=== PATIENT | female | born 1970 | race Caucasian/White ===

== ENCOUNTER → 2017-04-28 | Outpatient (CLI) | payer BC ==
[~2017-04-28] MED LIST: LEVO50TA6 PO; OXYC-57 PO
[2017-04-28 17:04] LABS: BASO % 0.5 %; BASO ABS # 0.05 K/uL (0-0.2); COMPLETE YES; EOS % 1.8 %; HEMATOCRIT 37.1 % (37-47); IG% 0.3 %; LYMPH % 21.5 %; MEAN CELL VOLUME 89.2 fL (80-100); MEAN CORPUSCULAR HEMOGLOBIN 29.1 pg (25-34); MEAN CORPUSCULAR HGB CONC 32.6 g/dl (32-36); MEAN PLATELET VOLUME 10.2 fL (7.4-10.4); MONO % 5.1 %; NEUT % 70.8 %; PLATELET COUNT 519 K/uL (130-400); RED BLOOD COUNT 4.16 M/uL (4.2-5.4); WHITE BLOOD COUNT 10.24 K/uL (4.8-10.8)
== END | disposition home or self-care (01) ==
LOC: C.LABBC 14:23
PROVIDERS: ATTEND Orthopaedic Surgery Orthopaedic Surgery of the Spine
DX: Z01.818 Encounter for other preprocedural examination (principal)

== ENCOUNTER 2017-05-25 05:41 | Inpatient (IN) | payer BC ==
[2017-04-29 14:29] VITALS: BMI 39.0
--- NOTE | 2017-05-22 15:57 | HISTORY & PHYSICAL EXAMINATION ---
DATE OF ADMISSION: 05/25/2017 CHIEF COMPLAINT: Back pain, lower extremity difficulty, paresthesias, numbness and tingling. She is being preoped for a posterior lumbar interbody fusion L5-S1. She has had back and lower extremity difficulties as described, paresthesias, numbness and tingling, inability to stand. PAST MEDICAL HISTORY: Obesity, high cholesterol, abnormal EKG 20 years ago, hypothyroid. PAST SURGICAL HISTORY: Knee surgery, chondroplasty, rotator cuff repair, left foot open reduction internal fixation, reduction mammoplasty. SOCIAL HISTORY: Minimal smoker, stopped 10 years ago. No alcohol use. REVIEW OF SYSTEMS: Denies any blurred vision, double vision, tinnitus, vertigo. Denies chest pain, palpitations. Denies shortness of breath, nausea, vomiting, urgency, frequency, dysuria. She has back pain, lower extremity difficulty, paresthesias. OBJECTIVE: GENERAL: She is 5'5, 235, 46 years of age, appropriate, asked intelligent questions, mentally fit. HEAD, EYES, EARS, NOSE, AND THROAT: Normal. VITAL SIGNS: Blood pressure 135/80, pulse of 80, respiration rate 16. CARDIAC: Normal S1, S2, no S3. LUNGS: Clear to auscultation. No rales, rhonchi or wheezing. ABDOMEN: Soft, nontender, bowel sounds present. NEUROLOGIC: Demonstrates numbness and tingling to the lower extremities, mostly in the L5 and S1 distribution. She has pain with flexion, extension of the spine. Pain with percussion. Images demonstrate a grade 1 spondylolisthesis, possibly grade 2 with degenerative changes. ASSESSMENT: Spondylolisthesis of the spine. DISPOSITION: Includes a posterior lumbar interbody fusion at L5-S1 [facility] on 05/25/2017.
[~2017-05-25] VITALS: Ht 162.6 cm; Wt 106.8 kg
[2017-05-25] VITALS (8 sets, daily range): BP systolic 115–147; BP diastolic 72–96; PULSE 72–86; TEMP 36.4–36.9; O2SAT 91–100; Ht 162.6 cm; Wt 106.8 kg
[~2017-05-25 05:41] MED LIST changes: -OXYC-57 PO
[2017-05-25] MEDS ORDERED: LACTATED RINGER'S 1000ML 1,000 ML IV SCH (06:00)
[2017-05-25] MEDS ORDERED: NSS 1000ML IV SCH (06:00)
[2017-05-25] MEDS ORDERED: CEFAZOLIN 2000 MG/60 ML D5W 60 ML IV SCH (06:00)
[2017-05-25] MEDS ORDERED: LIDOCAINE HCL 2% 2 ML VIAL (20MG/ML) ONE (06:43)
[2017-05-25] MEDS ORDERED: PROPOFOL IV EMULSION 10 MG/ML 20 ML VIAL IV ONE (06:43)
[2017-05-25] MEDS ORDERED: MIDAZOLAM HCL 1 MG/ML 2ML VIAL ONE (06:43)
[2017-05-25] MEDS ORDERED: HYDROmorphone INJ 2 MG/ML SYR/VIAL ONE (06:43)
[2017-05-25] MEDS ORDERED: DEXAMETHASONE SOD INJ 4 MG/ML VIAL ONE (06:43)
[2017-05-25] MEDS ORDERED: FENTANYL CITRATE INJ 50 MCG/1 ML 2 ML VIAL ONE ×2 (06:43→09:02)
[2017-05-25] MEDS ORDERED: ONDANSETRON INJ 2 MG/ML 2 ML VIAL ONE ×2 (06:45→08:43)
[2017-05-25] MEDS ORDERED: GELATIN SPONGE SZ 100 ONE ×2 (07:02→08:35)
[2017-05-25] MEDS ORDERED: THROMBIN FOR SOLN 20000 UNIT KIT ONE (07:02)
[2017-05-25] MEDS ORDERED: VANCOMYCIN HCL 1000MG/20ML VIAL ONE (07:02)
[2017-05-25] MEDS ORDERED: BACITRACIN 50000 UNIT VIAL ONE (07:03)
[2017-05-25] MEDS ORDERED: BUPIVACAINE/EPINEPHRINE 0.5% MPF 1:200,000 30 ML VIAL ONE (07:03)
[2017-05-25] MEDS ORDERED: ATROPINE SULFATE 0.1 MG/ML 5ML SYR IV PRN (07:15)
[2017-05-25] MEDS ORDERED: SCOPOLAMINE 1.5 MG TDSY TD SCH (07:15)
[2017-05-25] MEDS ORDERED: HYDROmorphone INJ 1 MG/ML SYR IV PRN (07:15)
[2017-05-25] MEDS ORDERED: ONDANSETRON INJ 2 MG/ML 2 ML VIAL IV PRN ×2 (07:15→10:30)
[2017-05-25] MEDS ORDERED: EpHEDrine SULFATE INJ 50 MG/ML AMP IV PRN (07:15)
[2017-05-25] MEDS ORDERED: FENTANYL CITRATE INJ 50 MCG/1 ML 2 ML VIAL IV PRN (07:15)
[2017-05-25] MEDS ORDERED: PROMETHAZINE HCL INJ 12.5 MG in SODIUM CHLORIDE 0.9% 50ML 50 ML IV PRN ×2 (07:15→10:30)
--- NOTE | 2017-05-25 07:16 | History & Physical Bridge Note ---
H&P Re-Evaluation Bridge Note: I have examined the patient, reviewed the History & Physical and in the interval since the performance of the History & Physical I have noted the following changes of clinical significance: No changes noted
[2017-05-25] MEDS ORDERED: KETAMINE HCL INJ 50 MG/ML 10 ML VIAL ONE (07:55)
[2017-05-25] MEDS ORDERED: ROCURONIUM BROMIDE 10 MG/ML 5 ML VIAL IV ONE ×2 (08:07→09:00)
[2017-05-25] MEDS ORDERED: NEOSTIGMINE METHYLSULFATE 5 MG/5 ML SYR ONE (08:43)
[2017-05-25] MEDS ORDERED: GLYCOPYRROLATE INJ 0.2 MG/ML VIAL ONE (08:43)
[2017-05-25] MEDS ORDERED: SODIUM CHLORIDE 0.9% 1000ML 1,000 ML IV SCH (10:28)
--- NOTE | 2017-05-25 10:28 | DIAGNOSTIC IMAGING REPORT ---
INTRAOPERATIVE RADIOGRAPH CLINICAL HISTORY: L5-S1 spinal fusion. Fluoroscopy time: 16 seconds. FINDINGS: A single spot fluoroscopic view of the lumbar spine is presented. There is evidence of discectomy at L5-S1 with laminectomy and posterior fusion at this level. Interpedicular screws are present at both levels. The orthopedic hardware appears intact. IMPRESSION: Intraoperative image from L5 -S1 spinal fusion as above. Electronically signed by: Vamsi Morris M.D. 05/25/2017 10:26 AM Dictated Date/Time: 05/25/2017 10:25 AM
[2017-05-25] MEDS ORDERED: LORAZEPAM 1 MG TAB PO PRN (10:30)
[2017-05-25] MEDS ORDERED: NALOXONE HCL 0.4 MG/1 ML VIAL/CARP IV PRN (10:30)
[2017-05-25] MEDS ORDERED: ACETAMINOPHEN 325 MG TAB PO PRN (10:30)
[2017-05-25] MEDS ORDERED: METOCLOPRAMIDE HCL INJ 5 MG/ML 2 ML VIAL IV PRN (10:30)
[2017-05-25] MEDS ORDERED: LORAZEPAM INJ 1 MG in SYRINGE 0.5 ML IV PRN (10:30)
--- NOTE | 2017-05-25 10:32 | [facility] Post Operative Brief Note ---
Immediate Operative Summary Operative Date May 25, 2017. Pre-Operative Diagnosis Spondylolisthesis Post-Operative Diagnosis Spondylolisthesis Procedure(s) Performed L5-S1 Posterior Lumbar Interbody Fusion Surgeon Dr. Bedoya Rn Diabetes Educator Surgeon(s) Geovany Izquierdo PA-C Estimated Blood Loss 200ml Findings spondy. l5-s1 Specimens none per surgeon Complication(s) None Disposition Recovery Room / PACU
--- NOTE | 2017-05-25 11:14 | Anesthesiology Progress Note ---
Anesthesia Post Op Note Date & Time May 25, 2017 at 11:14 Vital Signs Pain Intensity: 2 Vital Signs Past 12 Hours Date Time Temp Pulse Resp B/P (MAP) Pulse Ox O2 Delivery O2 Flow Rate FiO2 05/25/17 11:10 36.2 92 15 138/90 97 Nasal Cannula 4 05/25/17 11:00 94 11 156/87 97 Nasal Cannula 4 05/25/17 10:50 95 12 179/92 97 Oxymask 10 05/25/17 10:40 98 14 171/92 99 Oxymask 10 05/25/17 10:30 36.4 105 15 167/98 98 Oxymask 10 05/25/17 06:03 36.9 85 16 142/96 (111) 96 Room Air Notes Mental Status: alert / awake / arousable, participated in evaluation Pt Amnestic to Procedure: Yes Nausea / Vomiting: adequately controlled Pain: adequately controlled Airway Patency, RR, SpO2: stable & adequate BP & HR: stable & adequate Hydration State: stable & adequate Anesthetic Complications: no major complications apparent
[2017-05-25] MEDS ORDERED: HYDROmorphone HCL 0.5MG/ML 50 ML CASSETTE ONE (11:18)
--- NOTE | 2017-05-25 11:41 | OPERATIVE REPORT ---
DATE OF OPERATION: 05/25/2017 PREOPERATIVE DIAGNOSIS: Spondylolisthesis L5-S1. POSTOPERATIVE DIAGNOSIS: Same. PROCEDURE: PLIF procedure L5-S1. SURGEON: Dr. Gonzalez Bedoya. AUTOCUTTER: Geovany Izquierdo PA-C. COMPLICATIONS: Zero. BLOOD LOSS: 200 mL approximate. DESCRIPTION OF PROCEDURE: The patient was taken to the operating room, a general intubated anesthetic provided to the patient, placed prone on the Rafal table. Scrubbed, prepped and draped sterile. Prior to this, we put in a Holbrook catheter. Formal timeout was obtained. Antibiotics administered. We made a skin incision from 4 to the sacrum, dissecting the soft tissue in the same plane. She is an obese individual, we had to use 3-inch blades to get to the spinus process, the overall depth was approximately 4-5 inches to get to the interbody area. We dissected free and lateral out over the sacral ala, the spinous process and the transverse processes of 5 and sacrum bilaterally. We also dissected out over the 4 transverse process. I debated whether to put in a pedicle screw at the 4 level to give her extra support and we negated that decision. We then carefully dissected the neural tissues, particularly S1-L5 on the right, S1-L5 on the left, I was free with the decompression. We safely got pedicle screws into the sacrum, safely got pedicle screws into the 5th vertebrae. We locked down the construct, reduction was satisfactory. We then retracted the dura over in a medial direction. On the left hand side, did a complete discectomy at L5-S1, putting interbody cage at L5-S1, it measured 26 mm in length, 11 mm in height and 10 mm across. I was pleased with the overall fit and fixation and placement. Once again, we irrigated and we tightened down the construct. We packed bone over the transverse process from 4 to the sacrum bilaterally. We used combination autograft and DBM mixed with vancomycin powder. We then closed fascia to fascia with 1 Vicryl suture, vancomycin in the subcuticular layer, 2-0 Vicryl suture then used on the subcuticular layer, 3-0 nylon on the skin. Sterile dressings applied. The patient returned supine, extubated to PACU stable. No apparent intraoperative complications. Sponge and needle count correct at the close. Estimated blood loss 200 mL. I attest to the content of the Intraoperative Record and any orders documented therein. Any exception s are noted below.
[2017-05-25 12:54] LABS: HEMATOCRIT 32.7 % (37-47)
[2017-05-25] MEDS ORDERED: INFLUENZA VIRUS QUAD VACCINE 0.5 ML SYR IM. ONE (13:15)
[2017-05-25] MEDS ORDERED: INFLUENZA ADMINISTRATION CHARGE ONE (13:15)
[2017-05-25] MEDS: SODIUM CHLORIDE 0.9% 1000ML 1,000 ML IV SCH ×2 (13:40→22:25)
[2017-05-25] MEDS: KETOROLAC TROMETHAMINE 30 MG/ML VIAL IV SCH ×3 (13:41→23:32)
[2017-05-25] MEDS: CEFAZOLIN IV 2,000 MG in DEXTROSE 5% 50ML 50 ML IV SCH ×2 (14:45→22:25)
[2017-05-25] MEDS: DEXAMETHASONE INJ 10 MG in SYRINGE 0 ML IV SCH ×2 (14:45→22:24)
[2017-05-25] MEDS: CHECK SCOPOLAMINE PATCH PLACEMENT SCH ×3 (16:00→23:33)
[2017-05-25] MEDS: HYDROmorphone HCL 0.5MG/ML 50 ML CASSETTE IV PRN (18:54)
[2017-05-26 02:53] VITALS: BP 121/75; PULSE 79; TEMP 36.7; O2SAT 90
[2017-05-26] MEDS ORDERED: NURSING VERBAL MED ORDER ONE (05:45)
[2017-05-26] MEDS: LEVOTHYROXINE 50 MCG TAB PO SCH (05:58)
[2017-05-26] MEDS: DEXAMETHASONE INJ 10 MG in SYRINGE 0 ML IV SCH ×3 (05:58→21:21)
[2017-05-26] MEDS: KETOROLAC TROMETHAMINE 30 MG/ML VIAL IV SCH ×2 (05:58→13:08)
[2017-05-26] MEDS: CEFAZOLIN IV 2,000 MG in DEXTROSE 5% 50ML 50 ML IV SCH (06:06)
[2017-05-26] MEDS: HYDROmorphone HCL 0.5MG/ML 50 ML CASSETTE IV PRN (07:00)
[2017-05-26 07:10] VITALS: BP 132/82; PULSE 74; TEMP 36.7; O2SAT 94
[2017-05-26] MEDS ORDERED: DC PCA PRN (08:00)
[2017-05-26] MEDS ORDERED: HYDROmorphone INJ 2 MG/ML SYR/VIAL IV PRN (08:00)
[2017-05-26] MEDS: CHECK SCOPOLAMINE PATCH PLACEMENT SCH ×3 (08:00→23:13)
[2017-05-26] MEDS ORDERED: HYDROmorphone INJ 1 MG/ML SYR IV PRN (08:00)
[2017-05-26] MEDS: POLYETHYLENE (MIRALAX) 17 GM PACK PO SCH (08:38)
--- NOTE | 2017-05-26 09:11 | PROGRESS NOTE ---
DATE: 05/25/2017 DATE: 05/26/2017 SUBJECTIVE: She was improved, stable. Minimal complaints of pain, incisional back pain. Minimal lower extremity difficulty. OBJECTIVE: Vital signs stable, 36.7 temperature. Moves all extremities. ASSESSMENT: Status post single level posterior lumbar interbody fusion procedure lumbar spine L5-S1. DISPOSITION: Will have her up and ambulatory this morning. Tentative discharge home tomorrow. Drain and dressing will be changed tomorrow as well.
[2017-05-26] MEDS: OXYCODONE/ACETAMINOPHEN 5-325 TAB PO PRN ×2 (10:13→20:09)
[2017-05-26 11:27] VITALS: BP 155/95; PULSE 85; TEMP 36.6; O2SAT 95
[2017-05-26 15:30] VITALS: BP 128/79; PULSE 83; TEMP 36.9; O2SAT 95
[2017-05-26 22:49] VITALS: BP 130/82; PULSE 69; TEMP 36.8; O2SAT 95
[2017-05-27] MEDS: OXYCODONE/ACETAMINOPHEN 5-325 TAB PO PRN ×3 (04:30→12:58)
[2017-05-27] MEDS: LEVOTHYROXINE 50 MCG TAB PO SCH (05:36)
[2017-05-27 06:00] VITALS: BP 117/77; PULSE 75; TEMP 36.9; O2SAT 96
[2017-05-27] MEDS ORDERED: OXYC-57 PO (07:25)
--- NOTE | 2017-05-27 07:26 | Discharge Instructions ---
Discharge Instructions Date of Service May 27, 2017. Admission Reason for Admission: Spondylolisthesis, Spondylosis Discharge Discharge Diagnosis / Problem: SAME ABOVE Discharge Goals Goal(s): Decrease discomfort, Improve function Activity Recommendations Activity Limitations: as noted below Lifting Limitations: until after follow-up appointment Exercise/Sports Limitations: until after follow-up appointment Shower/Bathe: no limitations . Instructions / Follow-Up Instructions / Follow-Up MEDICATIONS: Please take your prescriptions as instructed at your pre-op appointment. SPECIAL CARE: The following information is intended to answer some of the common questions and concerns regarding your surgery. Each patient is an individual and receives individual counselling throughout the course of treatment, from diagnosis to surgery all the way through recovery. What follows is not an exhaustive list, but should be a useful guide to some of the common questions and concerns patients have regarding their surgeries. These are not provided to keep you from calling us; rather, they give you something accurate and concrete to reference as you recover from your procedure. If you need us, we are available to you. As always, if you are not sure about something, call us at [phone]. MEDICAL EMERGENCIES: For these conditions, call 911 or go to your local hospital-based Emergency Department - not [facility] or equivalent. * Paralysis * Severe chest pain or difficulty breathing * Swelling or redness of either leg Spine procedures can be rather complex and though complications are rare, they do occur. In such cases, effective advice regarding emergency situations cannot always be addressed over the telephone. You may be referred to the emergency department for more effective management of your problem. Activity Limitations: It is important to give your body time to heal, so please limit your activities : * In general, don't do anything that moves your spine too much. You should avoid contact sports, twisting or heavy lifting while you recover. * 5-10 pounds is all you should attempt to lift. * You should not plan on driving for approximately 3 weeks and you should avoid traveling more than 30-45 minutes at a time. Longer trips should be broken down with walking breaks spaced appropriately. * Physical therapy is not usually required. * Walking and good posture practices will help you recover and regain your function. * Avoid straining or sudden changes in position. * In general, the goal is to take it easy and recover. Don't cause any new problems. Just relax. Showers: * Do not take a bath, use a Jacuzzi or hot tub or otherwise submerge your incision. * It is usually safe to take a shower 4-5 days after your surgery. * Your incision does not require any special creams or ointments. * Simply clean it with soap and water, dry and re-dress with a clean bandage afterwards. Incision: * Keep incision clean, dry and protected until your first follow-up appointment. * Some amount of drainage and redness is normal. Any drainage should be fairly clear and not have a foul odor. * If you feel anything is wrong or you have excessive drainage, please call us. * Your stitches and cristina will be removed 10-14 days after your surgery. At the time of your first post-op visit. * Neck surgeries are typically closed with a suture underneath the skin. The steri-strips over the incision should be maintained until we see you in the office. Bracing: * You may be provided with a back or neck brace to encourage good posture and prevent injury. It will remind you not to do too much as you heal and will alert others to the fact that you have had a surgery. * Back braces may be removed for showers and when you are resting at home. They must be worn when you are walking around for any period of time or for travel. * For neck surgery, you will likely be provided with two cervical collars. The soft collar ([place] or foam rubber) is worn most commonly throughout the day and while sleeping. The plastic collar (provided at the hospital) is for showering/bathing. * Except while eating, collars should remain in place. More specifically, bracing is provided for a purpose and should be worn. * Please obtain your brace or collars prior to your operation and bring them to the hospital with you on the day of surgery. * You should also bring your collars to your post-op appointment with Dr. Bedoya. You should always take good care of your body and practice healthy habits, especially following surgery. You should: * Follow your doctor's treatment plan * Sit and stand properly with good posture (ears over shoulders, shoulders over hips) Don't slouch * Learn to lift correctly * Exercise regularly (low-impact aerobic exercise is especially good, but check with your doctor first) * Generally, be up and walking for 5-10 minutes at a time at least 3-4 times per day from the day you get home * Increasing walking to tolerance until you can walk for 20-30 minutes at a time * Attain and maintain a healthy body weight * Eat healthy foods ( a well-balanced, low-fat diet rich in fruits and vegetables) and get enough calcium * Avoid excessive use of alcohol When to call our office - If you notice any of the following: * Increased pain not relieve by pain medicine * Fevers greater then 100 degrees F, chills or flu symptoms * Increased redness around incision * Drainage from the incision that is not clear * Any foul smelling drainage * Swelling or fluid collection beneath the skin Miscellaneous: * In the hospital, you may be given a walker or cane for support while walking. These are temporary needs and are intended to prevent injuries due to falls. You may discontinue them when you feel strong and steady enough on your feet. * Sleep in a comfortable position. We find that many patients find a lounge chair or recliner with several pillows to be beneficial in the early post-operative period. * The support stockings should be used for 7-10 days and may be discontinued when you are back to walking more and conducting usual household activities. No problem is insignificant. We are here to help you and get you well. Contact us at [phone]. Definitions: Foraminotomy: If part of the disc or a bone spur (osteophyte) is pressing on a nerve as it leaves the vertebra (through an exit called the foramen), a foraminotomy may be done. Otomy means "to make an opening." A foraminotomy is making the opening of the foramen larger, so the nerve can exit without being compressed. Laminotomy: Similar to the foraminotomy, a laminotomy makes a larger opening, this time in your bony plate protecting your spinal canal and spinal cord (the lamina). The lamina may be pressing on your nerve, so the surgeon may make more room for the nerves using a laminotomy. Laminectomy: Sometimes, a laminotomy is not sufficient. The surgeon may need to remove all or part of the lamina. This procedure is called a laminectomy. This can often be done at many levels without any harmful effects. Current Hospital Diet Patient's current hospital diet: Regular Diet Discharge Diet Recommended Diet: Regular Diet Procedures Procedures Performed: L5-S1 Posterior Lumbar Interbody Fusion Pending Studies Studies pending at discharge: no Medical Emergencies . Who to Call and When: Medical Emergencies: If at any time you feel your situation is an emergency, please call 911 immediately. . Non-Emergent Contact Non-Emergency issues call your: Primary Care Provider . "Provider Documentation" section prepared by Geovany Izquierdo. . VTE Core Measure Inpt VTE Proph given/why not?: Treatment not indicated
[2017-05-27] MEDS: BISACODYL 5 MG TABEC PO PRN (07:29)
[2017-05-27] MEDS ORDERED: NURSING VERBAL MED ORDER ONE ×2 (08:30→13:30)
[2017-05-27] MEDS: POLYETHYLENE (MIRALAX) 17 GM PACK PO SCH (09:07)
[2017-05-27] MEDS ORDERED: CYCLOBENZAPRINE HCL 10 MG TAB PO ONE (14:30)
[2017-05-27] MEDS ORDERED: KETOROLAC TROMETHAMINE 30 MG/ML VIAL IV. ONE (14:30)
[2017-05-27 14:45] VITALS: BP 117/77; PULSE 75; TEMP 36.9; O2SAT 96
[2017-05-27 15:34] VITALS: BP 130/83; PULSE 71; TEMP 36.8; O2SAT 96
[2017-05-27] MEDS: BISACODYL 10 MG SUPP PR PRN (16:37)
[2017-05-27] MEDS ORDERED: HYDROmorphone INJ 2 MG/ML SYR/VIAL IV PRN (17:15)
--- NOTE | 2017-05-27 17:35 | ORTHOPEDIC PROGRESS NOTE ---
DATE: 05/27/2017 SUBJECTIVE CHIEF COMPLAINT: Postop day #2 lumbar fusion L5-S1. Ladi is a 46-year-old female postop day #2 lumbar spinal fusion at L5-S1. HISTORY OF PRESENT ILLNESS: She initially did well yesterday without any significant pain complaints. This morning, she had a little bit of pain radiating down her left leg with ambulation. There was 1 episode by mid afternoon when she stood up and had a sharp, burning electrical type pain running down from her left buttock into her left foot. This concerned her a little bit. We had scheduled her for discharge today; however, we are going to hold her until tomorrow with further medical management. OBJECTIVE: She was standing at bedside during her evaluation. She did not look in any apparent distress. She was wearing her back brace for support. I had her sit at bedside. She did have pain with straight leg raises on the left side versus the right. She has appropriate patellar and Achilles reflexes bilaterally. No true weakness in her lower extremities. No bowel or bladder incontinence. DATA: No new x-rays taken postoperatively. However, she had a CT scan pending of her lumbar spine to be done tomorrow. ASSESSMENT AND DIAGNOSES: Postop day #2 lumbar spinal fusion L5-S1. PLAN: At this time, we are going to keep her 1 more day, inpatient. We will get her started on some ketorolac q. 6 hours. Also get her some pain medication including Percocet orally and Dilaudid for new breakthrough pain. Also, provide her with some Flexeril for any backbiter if she may have. At this point, we will keep her at bed rest with bathroom privileges. If she is having significant pain, we can straight catheter her at bedside. I did order a CT scan for her to be scheduled for tomorrow. We will follow her up tomorrow to see how she is doing. Anticipated discharge day would be tomorrow, which is the 28 of May. I discussed this all with the patient and she is in agreement. I discussed with Dr. Bedoya as well and we are in agreement as well. PAULETTE
[2017-05-27] MEDS: MAGNESIUM HYDROXIDE SUSP 30 ML UDC PO PRN (22:20)
[2017-05-27] MEDS: KETOROLAC TROMETHAMINE 30 MG/ML VIAL IV PRN (22:22)
[2017-05-27 23:18] VITALS: BP 123/78; PULSE 89; TEMP 37; O2SAT 97
[2017-05-28] MEDS: CYCLOBENZAPRINE HCL 10 MG TAB PO PRN ×3 (00:53→20:22)
[2017-05-28] MEDS: OXYCODONE/ACETAMINOPHEN 5-325 TAB PO PRN (04:10)
[2017-05-28] MEDS: LEVOTHYROXINE 50 MCG TAB PO SCH (05:14)
[2017-05-28 06:57] VITALS: BP 150/92; PULSE 75; TEMP 36.7; O2SAT 96
--- NOTE | 2017-05-28 08:44 | DIAGNOSTIC IMAGING REPORT ---
LUMBAR SPINE CT CT DOSE: 1364.21 mGy.cm HISTORY: new onset left side low back pain s/p lumbar fusion TECHNIQUE: Multiaxial CT images of the lumbar spine were performed and reformatted in the sagittal and coronal plane without the use of contrast. A dose lowering technique was utilized adhering to the principles of ALARA. COMPARISON: Outside hospital lumbar spine MRI 03/13/2017. FINDINGS: There is evidence for removal of the left L4 pedicle screw. There is a small amount of gas and multiple bony fragments posterior to the left L4 transverse process consistent with the recent postoperative change. Healed fracture at the left L4 transverse process. There is an acute nondisplaced fracture at the tip of the L4 spinous process. This is best seen on sagittal image 32. Vertebral body heights are maintained. There is posterior decompression and fusion at L5-S1 with pedicle screws and rods. The hardware appears intact. There is also a disc spacer at this level. Remaining disc spaces are preserved. Evaluation of the central canal is limited due to CT technique. No definite central canal narrowing or neural foraminal narrowing from L1 through L5. Trace epidural gas at the L3-L4 and L4-5 levels likely due to the recent postoperative change. There is a small of gas at the recent L5-S1 laminectomy site. There are multiple small bony fragments medial to the left L5 pedicle/pedicle screw which reside along the left side of the central canal. The dominant 6 mm bony fragment best seen on axial image 310 and sagittal image 36 likely abuts the transiting left L5 nerve root. There is severe left-sided neural foraminal narrowing at L5-S1. Mild right-sided neural foraminal narrowing L5-S1. Evidence for bilateral L5 spondylolysis. This results in grade I anterolisthesis, unchanged. IMPRESSION: 1. Acute nondisplaced fracture at the tip of the L4 spinous process. 2. Interval removal of the left L4 pedicle screw with interval L5-S1 posterior decompression and fusion with pedicle screws and rods. The hardware appears intact. 3. There are multiple small bony fragments medial to the left L5 pedicle/pedicle screw. The dominant 6 mm bony fragment is along the left side of the thecal sac and likely abuts the transiting left L5 nerve root. 4. Additional findings as described above Electronically signed by: Michael Talavera M.D. 05/28/2017 8:43 AM Dictated Date/Time: 05/28/2017 8:29 AM
[2017-05-28] MEDS: KETOROLAC TROMETHAMINE 30 MG/ML VIAL IV PRN ×3 (08:45→21:30)
[2017-05-28] MEDS: POLYETHYLENE (MIRALAX) 17 GM PACK PO SCH (08:46)
--- NOTE | 2017-05-28 13:18 | ORTHOPEDIC PROGRESS NOTE ---
DATE: 05/28/2017 SUBJECTIVE CHIEF COMPLAINT: Postop day #3 lumber spinal fusion, L5-S1. HISTORY OF PRESENT ILLNESS: Ladi is postop day #3 lumbar spinal fusion at L5-S1. She still has complaints of low back pain and intermittent pain radiating down her left leg. She describes lying supine is being fairly pain free. Standing up, walking or ambulating to the bathroom, she will intermittently get some shooting pain down her left leg. She describes it as an electrical type sensation. OBJECTIVE: The patient is lying supine in the hospital bed. She is in no apparent distress. She struggles to find a comfortable position, though. While sitting at bedside, she does have pain with straight leg raises on the left side versus the right. No true weakness in her lower extremities. Sensory is intact. No bowel or bladder incontinence. CT SCAN AND STUDIES: We did get a CT scan this morning of the lumbar spine. The CT scan had shown that the pedicle screws are in good alignment and good repair. There is a dominant 6-mm bony fragment best seen on the CT scan that may abut the transiting left L5 nerve root. There is severe left-sided neural foraminal narrowing at L5-S1 as well. ASSESSMENT AND DIAGNOSES: 1. Postop day #3 lumbar spinal fusion at L5-S1. 2. Increasing pain without neurological deficits in her left lower extremity. PLAN: At this time, we are going to keep her in the hospital today as well. We are going to manage her medically with steroid pain medication. She can be out of bed with bathroom privileges. We are going to preop her and put her on the schedule tomorrow to do a further decompression at L5-S1. We will follow her up in our office in 10-14 days postoperative for suture removal.
[2017-05-28] MEDS: BISACODYL 5 MG TABEC PO PRN (13:44)
[2017-05-28 15:36] VITALS: BP 121/80; PULSE 87; TEMP 36.8; O2SAT 94
[2017-05-28] MEDS: BISACODYL 10 MG SUPP PR PRN (15:58)
[2017-05-28] MEDS: SODIUM CHLORIDE 0.9% 1000ML 1,000 ML IV SCH ×2 (15:59→23:45)
--- NOTE | 2017-05-28 16:33 | Anesthesiology Progress Note ---
Anesthesia Progress Note Date of Service May 28, 2017. Progress Notes The patient is scheduled to undergo L5/S1 decompression by Dr. Bedoya tomorrow. She had a lumbar decompression on 05/25/17 but continues to have L leg pain. She tolerated the surgery well and was a Grade 1 view with Mac 3. She had PONV despite antiemetic prophylaxis. Other PMH includes hypothyroidism, anemia, and morbid obesity. Labs are significant for hgb of 11.2 from 05/25/17. On exam the patient has a MP 1 airway with good neck extension. Heart is RRR. Lungs are clear to auscultation. She is an ASA 2. She was consented to general anesthesia for the procedure. She was counseled to remain NPO after midnight except for sips of water with pills.
--- NOTE | 2017-05-28 18:57 | HISTORY & PHYSICAL EXAMINATION ---
DATE OF ADMISSION: 05/25/2017 CHIEF COMPLAINT: Back and left lower extremity difficulty. HISTORY OF PRESENT ILLNESS: Ladi is a delightful patient, operated on her Thursday for a posterior lumbar interbody fusion. She had an essentially free interval for about 30 hours. Upon sitting on Thursday, she felt some paresthesias, numbness and tingling to her left foot. This worsened to having very significant leg pain, Thursday afternoon into Thursday. I am dictating this note on . She failed to respond to conservative care and medications. We reimaged her today for CAT scan and does appear like there is a bone fragment probably from the bone graft procedure on the S1 nerve root. Fortunately, she has pain when she sits and stands, slight numbness. She has no pain when she is supine, left side or right hand side. She has no fevers, sweats, chills, bowel and bladder issues. PAST MEDICAL HISTORY: Positive for obesity, high cholesterol. PAST SURGICAL HISTORY: Knee surgery, chondroplasty of the rotator cuff, foot surgery and recent spine surgery SOCIAL HISTORY: Minimal smoker. No alcohol. REVIEW OF SYSTEMS: No blurred vision, double vision, tinnitus, vertigo, no shortness of breath. No fever, sweats, chills. The only thing is musculoskeletal, neurological back and left lower extremity pain. OBJECTIVE: GENERAL: She is 5 feet 5 inches, 235. HEENT: Normal. VITAL SIGNS: Normal. Afebrile. LUNGS: Clear. ABDOMEN: Soft, nontender. CARDIAC: Normal rate and rhythm about 80 beats per minute. NEUROLOGIC: Numbness and tingling to the lower extremity, mostly L5-S1. She does not have weakness and reflex examination is normal. IMAGING DATA: Images were reviewed. She has, in my opinion, either a piece of bone fragments and a bone graft on the S1 nerve root, possibly a posterior migration of the interbody fusion device, I could not see it perfectly. Nevertheless, she has a pinched or compressed S1 nerve root of lumbar spine, on the left hand side consistent with her recent surgery. DISPOSITION: We had nice discussion here this evening approximately 6:00. Will take her back to surgery for adjustment of her implants, decompression of nerve root. Hopefully, we can get this resolved. ____ upon her the seriousness of the situation and we will not breathe easily until we have her improved. She will be kept n.p.o. after midnight.
[2017-05-28 22:54] VITALS: BP 121/81; PULSE 89; TEMP 36.9; O2SAT 97
[2017-05-29] MEDS: OXYCODONE/ACETAMINOPHEN 5-325 TAB PO PRN ×2 (01:10→23:25)
[2017-05-29] MEDS: KETOROLAC TROMETHAMINE 30 MG/ML VIAL IV PRN ×2 (05:41→14:23)
[2017-05-29] MEDS: LEVOTHYROXINE 50 MCG TAB PO SCH (05:41)
[2017-05-29] MEDS: POLYETHYLENE (MIRALAX) 17 GM PACK PO SCH (07:21)
[2017-05-29 07:49] VITALS: BP 103/74; PULSE 88; TEMP 36.7; O2SAT 98
[2017-05-29] MEDS: SODIUM CHLORIDE 0.9% 1000ML 1,000 ML IV SCH ×2 (10:56→23:20)
[2017-05-29 15:55] VITALS: BP 138/83; PULSE 93; TEMP 36.8; O2SAT 98
[2017-05-29] MEDS ORDERED: NURSING VERBAL MED ORDER ONE (17:30)
[2017-05-29] MEDS ORDERED: BUPIVACAINE/EPINEPHRINE 0.5% MPF 1:200,000 30 ML VIAL ONE ×2 (17:41→18:11)
[2017-05-29] MEDS ORDERED: BACITRACIN 50000 UNIT VIAL ONE (17:42)
[2017-05-29] MEDS ORDERED: ONDANSETRON INJ 2 MG/ML 2 ML VIAL IV PRN ×3 (17:45→20:00)
[2017-05-29] MEDS ORDERED: EpHEDrine SULFATE INJ 50 MG/ML AMP IV PRN ×2 (17:45→20:00)
[2017-05-29] MEDS ORDERED: FENTANYL CITRATE INJ 50 MCG/1 ML 2 ML VIAL IV PRN (17:45)
[2017-05-29] MEDS ORDERED: HYDROmorphone INJ 0.5 MG/0.5 ML SYR IV ONE (17:45)
[2017-05-29] MEDS ORDERED: SCOPOLAMINE 1.5 MG TDSY TD SCH (17:45)
[2017-05-29] MEDS ORDERED: ATROPINE SULFATE 0.1 MG/ML 5ML SYR IV PRN ×2 (17:45→20:00)
[2017-05-29] MEDS ORDERED: HYDROmorphone INJ 1 MG/ML SYR IV PRN ×3 (17:45→20:00)
[2017-05-29] MEDS ORDERED: PROMETHAZINE HCL INJ 12.5 MG in SODIUM CHLORIDE 0.9% 50ML 50 ML IV PRN ×3 (17:45→20:00)
[2017-05-29] MEDS ORDERED: VANCOMYCIN HCL 1000MG/20ML VIAL ONE ×2 (17:48)
[2017-05-29] MEDS ORDERED: LIDOCAINE HCL 2% 2 ML VIAL (20MG/ML) ONE (17:54)
[2017-05-29] MEDS ORDERED: GLYCOPYRROLATE INJ 0.2 MG/ML VIAL ONE (17:54)
[2017-05-29] MEDS ORDERED: FENTANYL CITRATE INJ 50 MCG/1 ML 2 ML VIAL ONE (17:54)
[2017-05-29] MEDS ORDERED: DEXAMETHASONE SOD INJ 4 MG/ML VIAL ONE (17:54)
[2017-05-29] MEDS ORDERED: MIDAZOLAM HCL 1 MG/ML 2ML VIAL ONE (17:54)
[2017-05-29] MEDS ORDERED: PROPOFOL IV EMULSION 10 MG/ML 20 ML VIAL IV ONE (17:54)
[2017-05-29] MEDS ORDERED: ONDANSETRON INJ 2 MG/ML 2 ML VIAL ONE (17:54)
[2017-05-29] MEDS ORDERED: NEOSTIGMINE METHYLSULFATE 1 MG/ML 10ML VIAL ONE (17:54)
[2017-05-29] MEDS ORDERED: ROCURONIUM BROMIDE 10 MG/ML 5 ML VIAL IV ONE (17:55)
[2017-05-29] MEDS ORDERED: CEFAZOLIN IV 2,000 MG in DEXTROSE 5% 50ML 50 ML IV SCH (18:00)
[2017-05-29] MEDS ORDERED: GELATIN SPONGE SZ 100 ONE (18:15)
[2017-05-29] MEDS ORDERED: THROMBIN FOR SOLN 20000 UNIT KIT ONE (18:21)
[2017-05-29] MEDS ORDERED: HYDROmorphone INJ 2 MG/ML SYR/VIAL ONE (18:36)
[2017-05-29] MEDS ORDERED: THROMBIN FOR SOLN 20000 UNIT KIT TOP ONE (19:24)
[2017-05-29] MEDS ORDERED: SODIUM CHLORIDE 0.9% 1000ML 1,000 ML IV SCH (19:35)
--- NOTE | 2017-05-29 19:36 | [facility] Post Operative Brief Note ---
Immediate Operative Summary Operative Date May 29, 2017. Pre-Operative Diagnosis Nerve Root Compression L5-S1 Post-Operative Diagnosis Nerve Root Compression L5-S1 Procedure(s) Performed L5-S1 Decompression Sur[address] Bedoya Cork Slabs Sawyer Surgeon(s) Geovany Izquierdo PA-C Estimated Blood Loss 50ml Findings nerve compression Specimens A. Removed caps Complication(s) None Disposition Recovery Room / PACU
[2017-05-29] MEDS ORDERED: MAGNESIUM HYDROXIDE SUSP 30 ML UDC PO PRN (19:45)
[2017-05-29] MEDS ORDERED: HYDROmorphone INJ 2 MG/ML SYR/VIAL IV PRN (19:45)
[2017-05-29] MEDS ORDERED: ACETAMINOPHEN 325 MG TAB PO PRN (19:45)
[2017-05-29] MEDS ORDERED: LORAZEPAM INJ 1 MG in SYRINGE 0.5 ML IV PRN (19:45)
[2017-05-29] MEDS ORDERED: OXYCODONE/ACETAMINOPHEN 5-325 TAB PO PRN ×2 (19:45)
[2017-05-29] MEDS ORDERED: LORAZEPAM 1 MG TAB PO PRN (19:45)
[2017-05-29] MEDS ORDERED: METOCLOPRAMIDE HCL INJ 5 MG/ML 2 ML VIAL IV PRN (19:45)
[2017-05-29] MEDS ORDERED: LABETALOL HCL IV 5 MG/ML 20ML IV PRN (20:00)
[2017-05-29] MEDS ORDERED: LABETALOL HCL IV 5 MG/ML 20ML IV ONE (20:00)
[2017-05-29] MEDS: FENTANYL CITRATE INJ 50 MCG/1 ML 2 ML VIAL IV PRN ×4 (20:02→20:50)
[2017-05-29 21:30] VITALS: BP 136/89; PULSE 81; TEMP 37; O2SAT 98
[2017-05-29 22:04] VITALS: BP 126/82; PULSE 72; TEMP 36.8; O2SAT 98
--- NOTE | 2017-05-29 22:18 | Anesthesiology Progress Note ---
Anesthesia Post Op Note Date & Time May 29, 2017 at 22:18 Vital Signs Pain Intensity: 2 Vital Signs Past 12 Hours Date Time Temp Pulse Resp B/P (MAP) Pulse Ox O2 Delivery O2 Flow Rate FiO2 05/29/17 22:04 36.8 72 17 126/82 (97) 98 Nasal Cannula 4.0 05/29/17 21:17 37.3 89 16 133/94 (115) 100 Nasal Cannula 4 05/29/17 20:50 159/99 05/29/17 20:48 78 14 05/29/17 20:48 78 14 100 05/29/17 20:45 157/111 05/29/17 20:43 78 9 97 05/29/17 20:43 79 9 05/29/17 20:40 149/106 05/29/17 20:38 83 15 05/29/17 20:38 83 15 100 05/29/17 20:35 174/110 05/29/17 20:33 73 12 05/29/17 20:33 72 12 97 05/29/17 20:30 151/109 05/29/17 20:29 152/116 05/29/17 20:28 73 12 05/29/17 20:28 72 12 100 05/29/17 20:25 142/102 05/29/17 20:23 80 11 05/29/17 20:23 81 11 98 05/29/17 20:20 149/105 05/29/17 20:18 87 12 100 05/29/17 20:18 84 12 05/29/17 20:16 149/113 05/29/17 20:13 78 11 100 05/29/17 20:13 76 11 05/29/17 20:12 153/118 05/29/17 20:10 72 11 05/29/17 20:10 72 11 151/118 100 05/29/17 20:05 83 11 153/104 100 05/29/17 20:05 85 11 05/29/17 20:00 88 16 162/110 100 05/29/17 20:00 88 16 05/29/17 19:59 79 16 100 05/29/17 19:59 82 16 05/29/17 19:55 181/95 05/29/17 19:54 87 05/29/17 19:54 90 100 05/29/17 19:51 163/92 05/29/17 19:49 83 12 100 05/29/17 19:49 85 12 05/29/17 19:45 172/116 05/29/17 19:44 86 15 05/29/17 19:44 37.0 88 12 176/106 100 Oxymask 10 05/29/17 19:44 85 15 176/105 100 05/29/17 17:26 36.5 16 127/78 (94) 97 Room Air 05/29/17 16:20 Room Air 05/29/17 15:55 36.8 93 17 138/83 (101) 98 Room Air Notes Mental Status: alert / awake / arousable, participated in evaluation Pt Amnestic to Procedure: Yes Nausea / Vomiting: adequately controlled Pain: adequately controlled Airway Patency, RR, SpO2: stable & adequate BP & HR: stable & adequate Hydration State: stable & adequate Anesthetic Complications: no major complications apparent
[2017-05-29 22:30] VITALS: BP 115/74; PULSE 84; TEMP 36.9; O2SAT 99
[2017-05-29 23:06] VITALS: BP 120/80; PULSE 89; TEMP 36.8; O2SAT 97
[2017-05-29] MEDS: CHECK SCOPOLAMINE PATCH PLACEMENT SCH (23:20)
[2017-05-29] MEDS: CYCLOBENZAPRINE HCL 10 MG TAB PO PRN (23:25)
[2017-05-30] VITALS (7 sets, daily range): BP systolic 107–137; BP diastolic 58–86; PULSE 84–98; TEMP 36.8–36.9; O2SAT 92–98
[2017-05-30] MEDS: CEFAZOLIN IV 2,000 MG in DEXTROSE 5% 50ML 50 ML IV SCH ×3 (02:18→18:13)
[2017-05-30] MEDS: DEXAMETHASONE INJ 10 MG in SYRINGE 0 ML IV SCH ×3 (02:18→18:14)
[2017-05-30] MEDS: OXYCODONE/ACETAMINOPHEN 5-325 TAB PO PRN ×3 (03:38→21:59)
[2017-05-30] MEDS ORDERED: BISACODYL 10 MG SUPP PR PRN (06:00)
[2017-05-30] MEDS ORDERED: BISACODYL 5 MG TABEC PO PRN (06:00)
[2017-05-30] MEDS: LEVOTHYROXINE 50 MCG TAB PO SCH (06:20)
[2017-05-30] MEDS: KETOROLAC TROMETHAMINE 30 MG/ML VIAL IV PRN (06:23)
[2017-05-30] MEDS: CHECK SCOPOLAMINE PATCH PLACEMENT SCH ×3 (07:52→23:33)
[2017-05-30] MEDS: POLYETHYLENE (MIRALAX) 17 GM PACK PO SCH (08:34)
--- NOTE | 2017-05-30 08:34 | PROGRESS NOTE ---
DATE: 05/25/2017 DATE: 05/30/2017 SUBJECTIVE: Moderate complaints of soreness. No significant leg pain, substantially improved. OBJECTIVE: Temperature 36.8. Moves all 4 extremities. ASSESSMENT: Status post reconstructive spine surgery and revision spine surgery. DISPOSITION: Will have her slowly ambulate today. Tentative discharge home on Thursday.
[2017-05-30] MEDS ORDERED: POLYETHYLENE (MIRALAX) 17 GM PACK PO SCH (09:00)
[2017-05-30] MEDS: CYCLOBENZAPRINE HCL 10 MG TAB PO PRN ×2 (09:38→21:58)
[2017-05-30] MEDS: SODIUM CHLORIDE 0.9% 1000ML 1,000 ML IV SCH (11:11)
[2017-05-30] MEDS ORDERED: NURSING VERBAL MED ORDER ONE (15:15)
[2017-05-31] MEDS: DEXAMETHASONE INJ 10 MG in SYRINGE 0 ML IV SCH ×2 (01:59→08:48)
[2017-05-31] MEDS: MAGNESIUM HYDROXIDE SUSP 30 ML UDC PO PRN (05:12)
[2017-05-31] MEDS: KETOROLAC TROMETHAMINE 30 MG/ML VIAL IV PRN (05:12)
[2017-05-31] MEDS: LEVOTHYROXINE 50 MCG TAB PO SCH (05:12)
[2017-05-31] MEDS: CHECK SCOPOLAMINE PATCH PLACEMENT SCH (08:00)
[2017-05-31 08:03] VITALS: BP 126/88; PULSE 84; TEMP 36.8; O2SAT 97
--- NOTE | 2017-05-31 08:43 | Discharge Instructions ---
Discharge Instructions Date of Service May 31, 2017. Admission Reason for Admission: Spondylolisthesis, Spondylosis Discharge Discharge Diagnosis / Problem: same Discharge Goals Goal(s): Improve function Activity Recommendations Activity Limitations: as noted below Lifting Limitations: until after follow-up appointment Exercise/Sports Limitations: until after follow-up appointment May Resume Sexual Activity: after follow-up appointment Shower/Bathe: keep incision dry Driving or Machine Use: home, rest, recover . Instructions / Follow-Up Instructions / Follow-Up MEDICATIONS: Please take your prescriptions as instructed at your pre-op appointment. SPECIAL CARE: The following information is intended to answer some of the common questions and concerns regarding your surgery. Each patient is an individual and receives individual counselling throughout the course of treatment, from diagnosis to surgery all the way through recovery. What follows is not an exhaustive list, but should be a useful guide to some of the common questions and concerns patients have regarding their surgeries. These are not provided to keep you from calling us; rather, they give you something accurate and concrete to reference as you recover from your procedure. If you need us, we are available to you. As always, if you are not sure about something, call us at [phone]. MEDICAL EMERGENCIES: For these conditions, call 911 or go to your local hospital-based Emergency Department - not [facility] or equivalent. * Paralysis * Severe chest pain or difficulty breathing * Swelling or redness of either leg Spine procedures can be rather complex and though complications are rare, they do occur. In such cases, effective advice regarding emergency situations cannot always be addressed over the telephone. You may be referred to the emergency department for more effective management of your problem. Activity Limitations: It is important to give your body time to heal, so please limit your activities : * In general, don't do anything that moves your spine too much. You should avoid contact sports, twisting or heavy lifting while you recover. * 5-10 pounds is all you should attempt to lift. * You should not plan on driving for approximately 3 weeks and you should avoid traveling more than 30-45 minutes at a time. Longer trips should be broken down with walking breaks spaced appropriately. * Physical therapy is not usually required. * Walking and good posture practices will help you recover and regain your function. * Avoid straining or sudden changes in position. * In general, the goal is to take it easy and recover. Don't cause any new problems. Just relax. Showers: * Do not take a bath, use a Jacuzzi or hot tub or otherwise submerge your incision. * It is usually safe to take a shower 4-5 days after your surgery. * Your incision does not require any special creams or ointments. * Simply clean it with soap and water, dry and re-dress with a clean bandage afterwards. Incision: * Keep incision clean, dry and protected until your first follow-up appointment. * Some amount of drainage and redness is normal. Any drainage should be fairly clear and not have a foul odor. * If you feel anything is wrong or you have excessive drainage, please call us. * Your stitches and cristina will be removed 10-14 days after your surgery. At the time of your first post-op visit. * Neck surgeries are typically closed with a suture underneath the skin. The steri-strips over the incision should be maintained until we see you in the office. Bracing: * You may be provided with a back or neck brace to encourage good posture and prevent injury. It will remind you not to do too much as you heal and will alert others to the fact that you have had a surgery. * Back braces may be removed for showers and when you are resting at home. They must be worn when you are walking around for any period of time or for travel. * For neck surgery, you will likely be provided with two cervical collars. The soft collar ([place] or foam rubber) is worn most commonly throughout the day and while sleeping. The plastic collar (provided at the hospital) is for showering/bathing. * Except while eating, collars should remain in place. More specifically, bracing is provided for a purpose and should be worn. * Please obtain your brace or collars prior to your operation and bring them to the hospital with you on the day of surgery. * You should also bring your collars to your post-op appointment with Dr. Bedoya. You should always take good care of your body and practice healthy habits, especially following surgery. You should: * Follow your doctor's treatment plan * Sit and stand properly with good posture (ears over shoulders, shoulders over hips) Don't slouch * Learn to lift correctly * Exercise regularly (low-impact aerobic exercise is especially good, but check with your doctor first) * Generally, be up and walking for 5-10 minutes at a time at least 3-4 times per day from the day you get home * Increasing walking to tolerance until you can walk for 20-30 minutes at a time * Attain and maintain a healthy body weight * Eat healthy foods ( a well-balanced, low-fat diet rich in fruits and vegetables) and get enough calcium * Avoid excessive use of alcohol When to call our office - If you notice any of the following: * Increased pain not relieve by pain medicine * Fevers greater then 100 degrees F, chills or flu symptoms * Increased redness around incision * Drainage from the incision that is not clear * Any foul smelling drainage * Swelling or fluid collection beneath the skin Miscellaneous: * In the hospital, you may be given a walker or cane for support while walking. These are temporary needs and are intended to prevent injuries due to falls. You may discontinue them when you feel strong and steady enough on your feet. * Sleep in a comfortable position. We find that many patients find a lounge chair or recliner with several pillows to be beneficial in the early post-operative period. * The support stockings should be used for 7-10 days and may be discontinued when you are back to walking more and conducting usual household activities. No problem is insignificant. We are here to help you and get you well. Contact us at [phone]. Definitions: Foraminotomy: If part of the disc or a bone spur (osteophyte) is pressing on a nerve as it leaves the vertebra (through an exit called the foramen), a foraminotomy may be done. Otomy means "to make an opening." A foraminotomy is making the opening of the foramen larger, so the nerve can exit without being compressed. Laminotomy: Similar to the foraminotomy, a laminotomy makes a larger opening, this time in your bony plate protecting your spinal canal and spinal cord (the lamina). The lamina may be pressing on your nerve, so the surgeon may make more room for the nerves using a laminotomy. Laminectomy: Sometimes, a laminotomy is not sufficient. The surgeon may need to remove all or part of the lamina. This procedure is called a laminectomy. This can often be done at many levels without any harmful effects. Current Hospital Diet Patient's current hospital diet: Regular Diet Discharge Diet Recommended Diet: Regular Diet Procedures Procedures Performed: L5-S1 Decompression Pending Studies Studies pending at discharge: no Medical Emergencies . Who to Call and When: Medical Emergencies: If at any time you feel your situation is an emergency, please call 911 immediately. . Non-Emergent Contact Non-Emergency issues call your: Surgeon . "Provider Documentation" section prepared by Gonzalez Bedoya. . VTE Core Measure Inpt VTE Proph given/why not?: Treatment not indicated
[2017-05-31] MEDS: POLYETHYLENE (MIRALAX) 17 GM PACK PO SCH (08:48)
--- NOTE | 2017-05-31 09:59 | DISCHARGE SUMMARY ---
She is improved, stable. Minimal complaints of pain. Alert, oriented. No shortness of breath or chest pain. Taking p.o. Moves all 4 extremities. ASSESSMENT: Reconstructive spine surgery. DISPOSITION: We will let her go home later on today, sometime Thursday afternoon. She has prescriptions on her chart. Her followup appointment should be in approximately 10-11 days in the office for wound evaluation. Instructions and precautions provided to the patient.
[2017-05-31] MEDS: OXYCODONE/ACETAMINOPHEN 5-325 TAB PO PRN (11:10)
[2017-05-31] MEDS: CYCLOBENZAPRINE HCL 10 MG TAB PO PRN (11:10)
--- NOTE | 2017-06-01 07:02 | OPERATIVE REPORT ---
DATE OF OPERATION: 05/29/2017 PREOPERATIVE DIAGNOSIS: Nerve root compression, lumbar spine, either from the spinal implant or bone fragment. POSTOPERATIVE DIAGNOSIS: Nerve root compression, lumbar spine, either from the spinal implant or bone fragment. PROCEDURES: Include revision at L5-S1, removal of a cap on the pedicle screw, decompression of the nerve root which was S1 on the left hand side. Also removal of two small bone fragments on the nerve. Also, we pushed the cage in approximately 7 more millimeters. SURGEON: Dr. Bedoya. CINDER DUMP CRANE OPERATOR: Geovany Izquierdo PA-C. COMPLICATIONS: No apparent complications. BLOOD LOSS: Less than 50 mL. DESCRIPTION OF PROCEDURE: The patient was taken to the operating room, a general intubated anesthetic provided to the patient. I scrubbed her first with alcohol. We scrubbed her with Betadine, prepped her with Chloraprep, draped sterile. We used her old skin incision, fascial incision, took out all the old sutures. We came right down on to the dural canal at L5-S1. We put in a deep self-retaining retractor. We irrigated thoroughly. I was able to visualize the S1 nerve root. There were 2 small pieces of bone on the S1 nerve root consistent with her pain and consistent with preoperative CT scan. These were removed. We then loosened up the pedicle screws on the left hand side, I was able to drive the implant in a little further, approximately 7 mm deeper to the L5-S1 interspace. We locked down the construct provisional and then final tightening, irrigated, placed some Gelfoam over the dural structures. Closed fascia to fascia over Hemovac drain and vancomycin powder, closed with 1-0 Vicryl suture, 2-0 on the subcuticular layer over vancomycin powder, 3-0 nylon on skin, sterile dressing applied. The patient returned to PACU improved, stable. I was pleased with the decompression and the findings. Estimated blood loss less than 50. Sponge and needle count correct at the close. I attest to the content of the Intraoperative Record and any orders documented therein. Any exception s are noted below.
--- NOTE | 2017-06-01 08:01 | DIAGNOSTIC IMAGING REPORT ---
INTRAOPERATIVE RADIOGRAPH CLINICAL HISTORY: L5-S1 spinal fusion. Fluoroscopy time: 5 seconds. FINDINGS: A single spot fluoroscopic view of the lower lumbar spine is presented. There has been discectomy at L5-S1 with laminectomy and posterior fusion at this level. Interpedicular screws are present at both levels. Orthopedic hardware appears intact. IMPRESSION: Intraoperative image from L5 -S1 spinal fusion as above. Electronically signed by: Vamsi Morris M.D. 05/29/2017 7:27 PM Dictated Date/Time: 05/29/2017 7:26 PM
== END 2017-05-31 12:05 | disposition home or self-care (01) | DRG 460 ==
LOC: C.ACU 05:41 → C.3E 10:36 → ENRESERV 10:53
PROVIDERS: ADMIT Orthopaedic Surgery Orthopaedic Surgery of the Spine; ATTEND Orthopaedic Surgery Orthopaedic Surgery of the Spine
PROC: 0ST40ZZ Resection of Lumbosacral Disc, Open Approach (ICD-10-PCS; principal; 2017-05-25 07:30)
PROC: 0SG30AJ Fusion of Lumbosacral Joint with Interbody Fusion Device, Posterior Approach, Anterior Column, Open Approach (ICD-10-PCS; principal; 2017-05-25 07:30)
DX: M43.17 Spondylolisthesis, lumbosacral region (principal); Z68.41 Body mass index [BMI] 40.0-44.9, adult; E66.9 Obesity, unspecified; E78.5 Hyperlipidemia, unspecified; Z87.891 Personal history of nicotine dependence

== ENCOUNTER 2017-06-25 12:38 | Inpatient (IN) | payer BC ==
[~2017-06-25] VITALS: Ht 162.6 cm; Wt 102.0 kg
[~2017-06-25 12:38] MED LIST changes: +OXYC-57 PO
[2017-06-25] MEDS ORDERED: NURSING VERBAL MED ORDER ONE ×2 (13:00→21:15)
[2017-06-25] MEDS ORDERED: LEVO75TA5 PO (13:00)
[2017-06-25] MEDS ORDERED: SODIUM CHLORIDE 0.9% 500ML 500 ML IV SCH (13:00)
--- NOTE | 2017-06-25 14:02 | DIAGNOSTIC IMAGING REPORT ---
L-SPINE MIN 4 VIEWS ROUTINE HISTORY: 46 years-old Female b6 acute low back pain with recent surgery. Fever. COMPARISON: Lumbar spine but fluoroscopic images 05/29/2017 TECHNIQUE: 5 views of the lumbar spine FINDINGS: Postoperative changes compatible with posterior interbody rachana and screw fusion with discectomy noted at L5-S1. There is 6 mm anterolisthesis L5 on S1. No evidence of hardware fracture or loosening. Alignment is otherwise preserved. No significant intervertebral disc space narrowing or acute fracture. No spondylolysis or spondylolisthesis identified. Soft tissues are unremarkable. IMPRESSION: 1. No acute fracture. 2. Postoperative findings compatible with posterior interbody rachana and screw fusion and discectomy with 6 mm anterolisthesis L5 on S1. The above report was generated using voice recognition software. It may contain grammatical, syntax or spelling errors. Electronically signed by: Checo Belcher M.D. 06/25/2017 2:01 PM Dictated Date/Time: 06/25/2017 1:57 PM
[2017-06-25 14:05] LABS: BASO % 0.1 %; BASO ABS # 0.02 K/uL (0-0.2); EOS % 0.1 %; EOS ABS # 0.01 K/uL (0-0.5); HEMATOCRIT 31.6 % (37-47); HEMOGLOBIN 10.2 g/dL (12.0-16.0); IG# 0.05 K/uL (0.00-0.02); LYMPH % 8.1 %; LYMPH ABS # 1.23 K/uL (1.2-3.4); MEAN CELL VOLUME 89.5 fL (80-100); MEAN CORPUSCULAR HEMOGLOBIN 28.9 pg (25-34); MEAN CORPUSCULAR HGB CONC 32.3 g/dl (32-36); MEAN PLATELET VOLUME 9.3 fL (7.4-10.4); MONO % 7.1 %; MONO ABS # 1.07 K/uL (0.11-0.59); NEUT % 84.3 %; NEUT ABS # 12.74 K/uL (1.4-6.5); PLATELET COUNT 636 K/uL (130-400); RED CELL DISTRIBUTION WIDTH CV 14.8 % (11.5-14.5); RED CELL DISTRIBUTION WIDTH SD 48.4 fL (36.4-46.3); WHITE BLOOD COUNT 15.12 K/uL (4.8-10.8)
[2017-06-25 14:23] LABS: CREATININE 0.74 mg/dl (0.60-1.20); POTASSIUM 3.2 mmol/L (3.5-5.1)
[2017-06-25] MEDS ORDERED: HYDROmorphone INJ 1 MG/ML SYR IV PRN (15:00)
[2017-06-25] MEDS ORDERED: OXYCODONE/ACETAMINOPHEN 5-325 TAB PO PRN (15:00)
--- NOTE | 2017-06-25 15:53 | DIAGNOSTIC IMAGING REPORT ---
MRI OF THE LUMBAR SPINE WITHOUT IV CONTRAST CLINICAL HISTORY: Fever and chills. Low back pain. Erythema and drainage at the incision site. COMPARISON STUDY: CT scan of lumbar spine dated 05/28/2017. Radiographs of lumbar spine dated 06/25/2017. TECHNIQUE: MRI of the lumbar spine is performed utilizing various T1 and T2-weighted sequences in the axial and sagittal planes. IV contrast was not ministered for this examination. The examination is degraded by motion artifact as well as by susceptibility artifact from metallic orthopedic hardware. FINDINGS: Lumbar spine: Vertebral body height is maintained throughout the lumbar spine. There is 9 mm of anterolisthesis at L5-S1. Alignment is otherwise preserved. Mild hyperlordosis is observed. Again seen are postoperative changes from laminectomy and posterior fusion at L5-S1. A healing fracture is again seen in the tip of the L4 spinous process. No destructive bony change is seen. Intervertebral discs: There has been discectomy at L5-S1. Degenerative disc desiccation is seen at L4-L5. The remaining discs are normal in height and signal intensity. Spinal cord: The visualized spinal cord is normal in morphology and signal intensity. The conus medullaris terminates at the T12-L1 interspace. The nerve roots of the cauda equina are normal in morphology. These are tethered at the level of L3-L4 by a fluid collection discussed below. Soft tissues and central canal: There is a large heterogeneous fluid collection identified within the posterior subcutaneous and deep soft tissues at the operative level. This measures approximately 13.5 x 7 x 4 cm. This collection communicates with the central canal as seen on sagittal image #8, and a loculated component extends into the posterior epidural space. This is seen at all levels between L3 and S1, and the component within the central canal measures approximately 8 x 1 x 1.5 cm. This causes mass effect on the posterior aspect of the thecal sac without clear evidence of communication. There is subcutaneous soft tissue edema overlying the fluid collection. L1-L2: Unremarkable. L2-L3: Unremarkable. L3-L4: There is moderate to severe acquired compromise of the central canal at this level, greatest on the right secondary to the epidural fluid collection discussed above. The minimum AP canal diameter measures 4 mm. The neural foramina are patent. L4-L5: There is a small posterior disc bulge with annular fissure. There is mild compromise of the central canal secondary to the posterior fluid collection. L5-S1: The central canal and neural foramina are grossly patent. Sacrum: There is edema within the right sacrum, with a distracted fracture of the right sacral ala as seen on axial image #36. This is new from 05/28/2017. IMPRESSION: 1. Again seen are postoperative changes from laminectomy and posterior fusion at L5-S1. There is a healing spinous process fracture of L4, similar to the 05/28/2017 examination. 2. There is a fracture of the right sacral ala, new from 05/28/2017. 3. There is a large heterogeneous fluid collection identified within the subcutaneous and deep soft tissues at the laminectomy site as detailed above. This extends into the central canal at the laminectomy level and along the posterior epidural space from L3 to S1. Differential considerations for the fluid collection include a seroma, liquefied hematoma, or less likely pseudomeningocele (there is no clear communication with the thecal sac). The sterility of this collection cannot be assessed by MRI and abscess is not excluded. Clinical correlation will be essential. 4. This fluid collection effaces the posterior thecal sac and causes moderate to severe central canal stenosis with tethering of the cauda equina at L3-L4. See above discussion for level by level analysis. Electronically signed by: Vamsi Morris M.D. 06/25/2017 3:52 PM Dictated Date/Time: 06/25/2017 3:35 PM
--- NOTE | 2017-06-25 17:06 | HISTORY & PHYSICAL EXAMINATION ---
DATE OF ADMISSION: 06/25/2017 CHIEF COMPLAINT: Back pain, lower extremity difficulty, paresthesias, draining from her lumbar spinal wound, headaches, rapid pulse, but no fever. HISTORY: Ladi is a delightful patient, I know her well. She had surgery 1 month ago for lumbar spondylolisthesis. She had spinal implant placed, an interbody cage. During her hospital stay, this slipped posterior. We took her back to surgery within 24 hours for revision, we were to get the cage in the anterior position. She was discharged home stable with no neurologic deficits or complication. We actually had her back in the office about 1 week ago and she was stable, alert, oriented, no complaints. Wound clean, dry. Over the course of last few days, she had increasing spinal headaches, fevers that she described, although she is afebrile today. She called us yesterday in the office, we brought her to the Emergency Room today, she was admitted today for evaluation and treatment of her spinal problem, spinal headache. The differential would be either spinal headache or abscess formation. MEDICAL HISTORY: Obesity, high cholesterol, hypothyroid. SURGERIES: Knee surgery, chondroplasty, rotator cuff, reduction mammoplasty, spine surgery x2. SOCIAL HISTORY: Nonsmoker, no alcohol use. REVIEW OF SYSTEMS: She admits to spinal headache or headache. No double vision, tinnitus, vertigo. Denies chest pain, palpitations. Denies nausea, vomiting, urgency, frequency. No bowel or bladder incontinence. OBJECTIVE: GENERAL: She is alert, oriented. She is 5 feet 5 inches, 235 pounds. She is 46. She is asking intelligent questions. Memory intact and mentally stable. No overall anxiety. VITAL SIGNS: Blood pressure 120/80, pulse of 80, respiratory rate 16, she is afebrile. CARDIAC: Normal S1, S2. LUNGS: Clear. ABDOMEN: Soft, nontender. MUSCULOSKELETAL: She does have some numbness and tingling, but no weakness. She does have some photophobia, and when we raise her head of the bed up or stand to ambulate her, she has increase in her headaches. Plain x-rays demonstrate appropriate positioning of her spinal implants. MRI scan demonstrates either a pseudomeningocele abscess formation, spinal fluid accumulation. Her wound demonstrates more of a spinal fluid drip and draining minimal though it is present. IMPRESSION: Delightful young lady, 46 years of age, complex spinal surgery, complex spinal complication. She had a spinal fluid leak, possible infection, although she is afebrile. I must add that white count is 15. DISPOSITION: She is being admitted to my service. Tomorrow, we are taking her to surgery for evacuation and exploration of her wound. She may require more instrumentation. I might be able to revise the construct, adding a little more support so that she does not have a failure. She may need patching of the dura, she may need long-term antibiotics. This has been discussed with the patient.
[2017-06-25 17:52] VITALS: BP 125/80; PULSE 92; TEMP 36.9; O2SAT 99; Ht 162.6 cm; Wt 102.0 kg
--- NOTE | 2017-06-25 18:14 | Anesthesiology Progress Note ---
Anesthesia Progress Note Date of Service Jun 25, 2017. Progress Notes The patient is a 46 y/o female scheduled for a lumbar I and D by Dr. Bedoya tomorrow. She had back surgery one month ago and is having back and L leg pain and numbness. Other PMH includes hypothyroidism, obesity, chronic thrombocytosis, anemia, and hypokalemia. She has a history of PONV but no other anesthesia problems. Labs are significant for WBC 15.2, hgb 10.2, plt 636 , and potassium 3.2. On exam the patient was sitting in bed. She appeared to be in some discomfort. She has good neck extension and is a MP 1. Lungs were clear and heart was RRR. The patient is an ASA 2. She was consented to general anesthesia. She will be given a dose of oral potassium and Dr. Bedoya will have her started on IV fluids with potassium tonight at midnight when she becomes NPO. A potassium level will be checked tomorrow morning. She was counseled to remain NPO after midnight except for sips of water with pills.
[2017-06-25] MEDS ORDERED: POTASSIUM CITRATE 10 MEQ TAB PO ONE (18:15)
[2017-06-25 18:28] VITALS: TEMP 37.5
[2017-06-25] MEDS: CEFAZOLIN IV 2,000 MG in SYRINGE 0 ML IV SCH (19:25)
[2017-06-25] MEDS: ACETAMINOPHEN IV 1,000 MG in EMPTY BAG 0 ML IV SCH (19:25)
[2017-06-25] MEDS: SODIUM CHLOR 0.45% + 20MEQ KCL 1,000 ML IV SCH (19:32)
[2017-06-25 20:10] VITALS: TEMP 37.2
[2017-06-25] MEDS: DOCUSATE SODIUM 100 MG CAP PO SCH (21:59)
[2017-06-25 23:21] VITALS: BP 122/75; PULSE 83; TEMP 36.8; O2SAT 100
[2017-06-26] VITALS (7 sets, daily range): BP systolic 122–170; BP diastolic 77–91; PULSE 78–100; TEMP 36.8–37.1; O2SAT 98–99
[2017-06-26] MEDS: CEFAZOLIN IV 2,000 MG in SYRINGE 0 ML IV SCH ×2 (01:48→09:58)
[2017-06-26] MEDS: ACETAMINOPHEN IV 1,000 MG in EMPTY BAG 0 ML IV SCH ×3 (03:38→21:40)
[2017-06-26] MEDS: LEVOTHYROXINE 75 MCG TAB PO SCH (05:59)
--- NOTE | 2017-06-26 07:18 | History & Physical Bridge Note ---
H&P Re-Evaluation Bridge Note: I have examined the patient, reviewed the History & Physical and in the interval since the performance of the History & Physical I have noted the following changes of clinical significance: No changes noted PROCEDURE; WASH OUT OF FLUID, REPAIR IF NEEDED, REPAIR OF DURA IF NEEDED, REMOVE IMPLANTS IF NEEDED, PLACE IMPLANTS IF NEEDED. DO WHAT IS CORRECT WHAT IS NEEDED
[2017-06-26] MEDS: DOCUSATE SODIUM 100 MG CAP PO SCH ×2 (08:06→21:41)
[2017-06-26] MEDS: SODIUM CHLOR 0.45% + 20MEQ KCL 1,000 ML IV SCH (08:06)
[2017-06-26] MEDS ORDERED: BUPIVACAINE/EPINEPHRINE 0.5% MPF 1:200,000 30 ML VIAL ONE (14:00)
[2017-06-26] MEDS ORDERED: BACITRACIN 50000 UNIT VIAL ONE (14:00)
[2017-06-26] MEDS ORDERED: GELATIN SPONGE SZ 100 ONE ×2 (14:00→16:09)
[2017-06-26] MEDS ORDERED: THROMBIN FOR SOLN 20000 UNIT KIT ONE (14:00)
[2017-06-26] MEDS ORDERED: VANCOMYCIN HCL 1000MG/20ML VIAL ONE ×3 (14:04→16:14)
[2017-06-26] MEDS ORDERED: ATROPINE SULFATE 0.1 MG/ML 5ML SYR IV PRN (14:15)
[2017-06-26] MEDS ORDERED: EpHEDrine SULFATE INJ 50 MG/ML AMP IV PRN (14:15)
[2017-06-26] MEDS ORDERED: FENTANYL CITRATE INJ 50 MCG/1 ML 2 ML VIAL IV PRN (14:15)
[2017-06-26] MEDS ORDERED: HYDROmorphone INJ 1 MG/ML SYR IV PRN ×2 (14:15→19:15)
[2017-06-26] MEDS ORDERED: ONDANSETRON INJ 2 MG/ML 2 ML VIAL IV PRN ×2 (14:15→19:15)
[2017-06-26] MEDS ORDERED: NURSING VERBAL MED ORDER ONE (14:30)
[2017-06-26] MEDS ORDERED: SCOPOLAMINE 1.5 MG TDSY TD ONE (14:33)
[2017-06-26] MEDS ORDERED: DEXAMETHASONE SOD INJ 4 MG/ML VIAL ONE (14:38)
[2017-06-26] MEDS ORDERED: LIDOCAINE HCL 2% 2 ML VIAL (20MG/ML) ONE (14:38)
[2017-06-26] MEDS ORDERED: NEOSTIGMINE METHYLSULFATE 1 MG/ML 10ML VIAL ONE (14:38)
[2017-06-26] MEDS ORDERED: PROPOFOL IV EMULSION 10 MG/ML 20 ML VIAL IV ONE (14:38)
[2017-06-26] MEDS ORDERED: GLYCOPYRROLATE INJ 0.2 MG/ML VIAL ONE (14:38)
[2017-06-26] MEDS ORDERED: ONDANSETRON INJ 2 MG/ML 2 ML VIAL ONE (14:38)
[2017-06-26] MEDS ORDERED: FENTANYL CITRATE INJ 50 MCG/1 ML 2 ML VIAL ONE ×2 (14:38→19:18)
[2017-06-26] MEDS ORDERED: MIDAZOLAM HCL 1 MG/ML 2ML VIAL ONE (14:38)
[2017-06-26] MEDS ORDERED: LACTATED RINGER'S 1000ML 1,000 ML IV SCH (14:45)
[2017-06-26] MEDS ORDERED: CEFAZOLIN SOD 1000MG/5 ML IV PUSH IV ONE (14:54)
[2017-06-26] MEDS ORDERED: GENTAMICIN SULFATE 40 MG/ML 2 ML VIAL ONE (15:50)
[2017-06-26] MEDS ORDERED: ROCURONIUM BROMIDE 10 MG/ML 5 ML VIAL IV ONE (16:10)
[2017-06-26 16:14] LABS: HEMATOCRIT 28.8 % (37-47); HEMOGLOBIN 9.3 g/dL (12.0-16.0)
[2017-06-26] MEDS ORDERED: HYDROmorphone INJ 2 MG/ML SYR/VIAL ONE (16:26)
[2017-06-26] MEDS ORDERED: DURASEAL DURAL SEALANT 5ML TOP ONE (18:30)
--- NOTE | 2017-06-26 18:47 | DIAGNOSTIC IMAGING REPORT ---
SPINE ONE VIEW, ANY LEVEL CLINICAL HISTORY: 46 years-old Female presenting with high M.D. with revision. TECHNIQUE: 10 fluoroscopic spot image(s) obtained as part of an intraoperative procedure. COMPARISON: Plain radiographs from 06/25/2017. FINDINGS/IMPRESSION: Bilateral transpedicular screws from L4 through S1 with interbody spacer at L5-S1. The transpedicular screws at L4 are new from prior. Grossly normal anatomic alignment. Please see surgical report for further details. Fluoroscopy dosage (mGy): Not available. Fluoroscopy time: 26 seconds. Number of fluoroscopic spot images: 10. Electronically signed by: Edgardo Riojas M.D. 06/26/2017 6:46 PM Dictated Date/Time: 06/26/2017 6:44 PM
[2017-06-26 18:58] LABS: HEMATOCRIT 28.5 % (37-47); HEMOGLOBIN 9.4 g/dL (12.0-16.0)
--- NOTE | 2017-06-26 19:11 | [facility] Operative Report ---
Operative Report Operative Date Jun 26, 2017. Pre-Operative Diagnosis Tear of dura from spica bone, break out of pedicle screws L5-S1, lumbar spine wound infection; failure of implants Post-Operative Diagnosis Same as preoperative diagnosis Procedure(s) Performed Incision and Drainage Lumbar Spine; Repair of Dural Laceration, Hardware Removal L5-S1, Revision of Lumbar Fusion, Pedicle Screws Instrumentation L4-L5-S1 Bilaterally, Revision of Interbody L5-S1, Application of Stimulant Beads, Bone Morphogenic Protein Surgeon Dr. Lisa Bedoya [employer] Examiner Surgeon(s) Ghassan Izquierdo PA-C Estimated Blood Loss 400ml Findings Breakage of hardwarw . small dural leak; gross instabilty Specimens lab: stat hemoglobin/hematocrit sent to lab at 1852 Complication(s) None Disposition Recovery Room / PACU I attest to the content of the Intraoperative Record and any orders documented therein. Any exceptions are noted below.
[2017-06-26] MEDS ORDERED: HYDROmorphone INJ 2 MG/ML SYR/VIAL IV PRN (19:15)
[2017-06-26] MEDS ORDERED: OXYCODONE/ACETAMINOPHEN 5-325 TAB PO PRN ×2 (19:15)
[2017-06-26] MEDS ORDERED: MAGNESIUM HYDROXIDE SUSP 30 ML UDC PO PRN (19:15)
[2017-06-26] MEDS ORDERED: METOCLOPRAMIDE HCL INJ 5 MG/ML 2 ML VIAL IV PRN (19:15)
[2017-06-26] MEDS ORDERED: PROMETHAZINE HCL INJ 12.5 MG in SODIUM CHLORIDE 0.9% 50ML 50 ML IV PRN (19:15)
--- NOTE | 2017-06-26 19:54 | Anesthesiology Progress Note ---
Anesthesia Post Op Note Date & Time Jun 26, 2017 at 19:54 Vital Signs Pain Intensity: 3 Vital Signs Past 12 Hours Date Time Temp Pulse Resp B/P (MAP) Pulse Ox O2 Delivery O2 Flow Rate FiO2 06/26/17 19:49 36.8 06/26/17 19:46 174/107 06/26/17 19:45 115 19 95 06/26/17 19:45 113 19 06/26/17 19:41 141/84 06/26/17 19:40 113 16 06/26/17 19:40 113 16 97 06/26/17 19:36 156/92 06/26/17 19:35 117 16 99 06/26/17 19:35 119 16 06/26/17 19:31 156/78 06/26/17 19:30 119 12 06/26/17 19:30 119 12 100 06/26/17 19:26 151/87 06/26/17 19:25 111 19 06/26/17 19:25 112 19 100 06/26/17 19:21 148/97 06/26/17 19:20 114 11 100 06/26/17 19:20 116 11 06/26/17 19:16 147/99 06/26/17 19:15 116 17 100 06/26/17 19:15 115 17 06/26/17 19:11 159/93 06/26/17 19:10 111 17 06/26/17 19:10 109 17 152/93 100 06/26/17 19:05 36.9 108 16 152/93 100 Mask 10 06/26/17 14:20 36.9 88 18 139/86 (103) 99 Room Air 06/26/17 08:20 Room Air Notes Mental Status: alert / awake / arousable, participated in evaluation Pt Amnestic to Procedure: Yes Nausea / Vomiting: adequately controlled Pain: adequately controlled Airway Patency, RR, SpO2: stable & adequate BP & HR: stable & adequate Hydration State: stable & adequate Anesthetic Complications: no major complications apparent
[2017-06-26] MEDS: SODIUM CHLORIDE 0.9% 1000ML 1,000 ML IV SCH (21:40)
[2017-06-26] MEDS: LORAZEPAM INJ 1 MG in SYRINGE 0.5 ML IV PRN (23:54)
[2017-06-26] MEDS: KETOROLAC TROMETHAMINE 30 MG/ML VIAL IV. SCH (23:54)
[2017-06-27 03:24] VITALS: BP 143/88; PULSE 82; TEMP 36.9; O2SAT 99
[2017-06-27] MEDS: ACETAMINOPHEN IV 1,000 MG in EMPTY BAG 0 ML IV SCH ×3 (04:13→21:29)
[2017-06-27] MEDS: LEVOTHYROXINE 75 MCG TAB PO SCH (05:24)
[2017-06-27] MEDS: KETOROLAC TROMETHAMINE 30 MG/ML VIAL IV. SCH ×4 (05:25→23:41)
[2017-06-27] MEDS ORDERED: BISACODYL 5 MG TABEC PO PRN (06:00)
[2017-06-27] MEDS ORDERED: VANCOMYCIN INJ 1,500 MG in SODIUM CHLORIDE 0.9% 500ML 500 ML IV SCH (06:00)
[2017-06-27] MEDS ORDERED: BISACODYL 10 MG SUPP PR PRN (06:00)
[2017-06-27 07:57] VITALS: BP 128/77; PULSE 78; TEMP 36.9; O2SAT 99
[2017-06-27 08:10] VITALS: O2SAT 99
[2017-06-27] MEDS: SODIUM CHLORIDE 0.9% 1000ML 1,000 ML IV SCH (08:30)
[2017-06-27] MEDS: DOCUSATE SODIUM 100 MG CAP PO SCH ×2 (08:51→21:29)
[2017-06-27] MEDS ORDERED: NURSING VERBAL MED ORDER ONE ×2 (09:00→17:45)
[2017-06-27] MEDS ORDERED: POLYETHYLENE (MIRALAX) 17 GM PACK PO SCH (09:00)
--- NOTE | 2017-06-27 09:01 | OPERATIVE REPORT ---
DATE OF OPERATION: 06/26/2017 PREOPERATIVE DIAGNOSES: Spinal fluid leak, possible infection lumbar spinal, leak lumbar spine. POSTOPERATIVE DIAGNOSES: 1. Same including failure and breakage of hardware implants at L5-S1 with a pullout of the S1 sacral pedicle screw. 2. Pullout and breakage of the L5 pedicle screw on the left side. 3. Posterior migration of the interbody device at L5-S1. PROCEDURE: 1. Incision, drainage, irrigation of her lumbar spinal wound 2. Direct repair of the dura at L5-S1 centrally located. 3. Reinsertion modification of pedicle screws, L5-S1 and L4 on the right and L5-L4 on the left. 4. Decompression L4-L5 lumbar spine. 5. Patching of the dura with DuraGen. 6. Placement of antibiotic impregnated beads to the deep aspect of the wound. 7. A posterolateral fusion with Infuse. DESCRIPTION OF PROCEDURE: The patient was taken to the operating room. A general intubated anesthetic provided to the patient. Prior to this, informed consent was obtained, a formal bridge note provided, formal timeout. After she was placed prone, she was scrubbed, prepped and draped sterile. We commenced with surgery. I used her old incision, made a skin incision, it was apparent to me that there were spinal fluid. There was a little more cloudy then clear spinal fluid, so we cultured this, later on it was gram positive with minimal cocci. She had torn through the fascial layer. It was very apparent she had some spinal fluid at multiple levels of the incision and the soft tissue structures. We worked diligently, we were able to obtain nice exposure, we put in a deep self-retaining retractor. We irrigated out the wound with approximately 3000 mL of fluid. The field was clean. It then became apparent to me that she had fractured the S1 pedicle screw on the right hand side. What this had done is a pushed out as well the lamina on the right hand side which protruded into the dura causing a small hole. The hole itself was approximately 1 at the most 2 mm. This was where the spinal fluid was coming from. I explored the left hand side where the implant was initially placed and there was no fluid coming out from this area. We then removed a little bit of lamina at S1. We irrigated thoroughly. With Nurolon suture, I was able to directly repair the small opening. This was followed by a Valsalva maneuver which verified that there was no drainage present. We then continued with our irrigation. I was able to remove the old implants and modify the S1 pedicle with a stronger and larger implant. I directed it little bit differently getting to the sacral promontory. I was pleased with the size of the screw, the location of the screw and the depth as well on the right hand side. The L5 screw on the right was intact and stable. Using anatomic guideline, C-arm as well, we were able to safely get a nice pedicle screw 6.5 x 45 into the pedicle L4 on the right. We then changed sides. I was on the left hand side, the S1 pedicle on the left hand side was strong and secure, no loosening. The 5 pedicle screw on the left was loose. This was removed. We then were able to modify the approach, I was able to come a little more medial and get a nice secure pedicle fixation of L5-S1 on the left. We also were able to get a good pedicle screw at L4 on the left. We irrigated the wound once again. I then was able to coat the Infuse which was a bone growth protein out over the lateral gutters from L4 down to the sacrum. I did this bilaterally. I felt that she need the best chance to get a decent fusion or a good fusion. I felt in light of the inflammatory process that the Infuse was the best option rather than harvesting more iliac crest bone or any additional iliac crest bone. We then placed Gelfoam over the dura in a classic manner. I placed the beads that were impregnated with tobramycin and vancomycin on the Gelfoam material. I put a Hemovac drain deep to the wound. We closed the deep layer with 1 Vicryl suture, 2-0 in the subcuticular layer. Running 3-0 Prolene on the skin. Each layer was closed meticulously and thoroughly. The drain was activated. Sterile dressings applied. The patient returned supine. She was returned to PACU, stable without any incident. Blood loss of the procedure 300-400 mL. No apparent interoperative complications or events. Her condition still remains guarded but I was pleased with the surgical event. Sponge and needle count correct at the close. I attest to the content of the Intraoperative Record and any orders documented therein. Any exception s are noted below.
[2017-06-27 11:48] VITALS: BP 133/79; PULSE 91; TEMP 36.6; O2SAT 97
[2017-06-27 14:48] VITALS: BP 118/72; PULSE 88; TEMP 36.7; O2SAT 98
[2017-06-27] MEDS: CHECK SCOPOLAMINE PATCH PLACEMENT SCH ×2 (16:01→23:42)
[2017-06-27 18:17] LABS: CALCIUM 8.6 mg/dl (8.5-10.1); CREATININE 0.97 mg/dl (0.60-1.20); POTASSIUM 3.4 mmol/L (3.5-5.1)
[2017-06-27] MEDS: LACTATED RINGER'S 1000ML 1,000 ML IV SCH (18:17)
[2017-06-27] MEDS ORDERED: CEFTRIAXONE SOD INJ 2,000 MG in DEXTROSE 5% 50ML 50 ML IV SCH (19:15)
[2017-06-27] MEDS ORDERED: POTASSIUM CHLORIDE 10 MEQ TABCR PO ONE (19:45)
--- NOTE | 2017-06-27 19:55 | Medical Consult ---
Consultation Date of Consultation: Jun 27, 2017. Attending Physician: Gonzalez Bedoya DO Reason for Consultation: blurred vision History of Present Illness Pleasant 46yo female with history of hypothyroidism who was hospitalized at [facility] from 05/25/17 to 05/31/17 for lumbar back surgery. First surgery was an L5-S1 Posterior Lumbar Interbody Fusion due to spondylolisthesis. She ultimately required a 2nd surgery later on during that May stay due to nerve root compression and thus an L5-S1 decompression was performed. She was discharged to home in stable condition and did well for a few weeks. However, on Thursday of this week, she developed fever to 103 degrees along with severe headache and mild neck pain. She also had fever on Thursday to about 101 degrees. Kaylen was called in by the orthopedic office on Thursday morning. Sometime late on Thursday evening she developed redness over the incision site and a fluid leak from the incision. The fluid was clear/ colorless according to the patient's mother. On she was advised to come to the hospital. It appears blood cultures were drawn at time of admission and she was placed on IV vancomycin. She recalls having a temp of about 99.9 on . On 06/26/17 she was taken back to the OR by Dr. Bedoya who performed the following - Incision and Drainage Lumbar Spine; Repair of Dural Laceration, Hardware Removal L5-S1, Revision of Lumbar Fusion, Pedicle Screws Instrumentation L4-L5- S1 Bilaterally, Revision of Interbody L5-S1, Application of Stimulant Beads, Bone Morphogenic Protein. She has remained on bedrest since the operation. She reports poor appetite and constipation. Headaches have improved but still present. No neck pain today. Sometime late this afternoon she noted blurry vision in both eyes. Denies any visual field cuts. There was some concern that the scopolamine patch caused the blurry vision and thus it was removed prior to my visit. She mentions that the vision is already improving. Past Medical/Surgical History PMH: 1. hypothyroidism 2. obesity PSH: 1. L5-S1 fusion 2. L5-S1 decompression 3. removal of instrumentation, revision of #1/#2, application of antibiotic beads 4. chondroplasty right knee 5. right rotator cuff repair 6. b/l breast reduction Family History father - age 63 from brain tumor mother - alive & well Social History Smoking Status: Former Smoker Smokeless Tobacco Use: No Alcohol Use: none Drug Use: none Marital Status: (4 children) Housing Status: lives with family Occupation Status: employed (RN [employer]) Allergies Coded Allergies: No Known Allergies (Unverified , 06/25/17) Current Inpatient Medications Current Inpatient Medications Medications (Trade) Dose Ordered Sig/Manan Route Start Time Stop Time Status Last Admin Dose Admin Acetaminophen 1000 mg/Empty Bag 100 ml @ 400 mls/hr Q8H IV 06/25/17 20:00 07/25/17 19:59 06/27/17 11:31 400 MLS/HR Levothyroxine Sodium (Synthroid Tab) 75 mcg DAILYBB PO 06/26/17 06:00 07/26/17 05:59 06/27/17 05:24 75 MCG Docusate Sodium (coLACE CAP) 100 mg BID PO 06/25/17 21:36 07/25/17 21:35 06/27/17 08:51 100 MG Miscellaneous Information (Check Scopolamine Patch Placement) 1 ea QS N/A 06/27/17 16:00 06/30/17 05:59 06/27/17 16:01 1 EA Diphenhydramine HCl (Benadryl Cap) 25 mg Q6H PRN PO 06/26/17 19:15 07/26/17 19:14 Magnesium Hydroxide (Milk Of Magnesia Susp) 30 ml DAILY PRN PO 06/26/17 19:15 07/26/17 19:14 Bisacodyl (Dulcolax Supp) 10 mg DAILY PRN ID 06/27/17 06:00 07/27/17 05:59 Bisacodyl (Dulcolax Tab) 5 mg DAILY PRN PO 06/27/17 06:00 07/27/17 05:59 Lorazepam 1 mg/ Syringe 1 ml @ 1 mls/min Q6H PRN IV 06/26/17 19:15 07/26/17 19:14 06/26/17 23:54 1 MLS/MIN Lorazepam (Ativan Tab) 1 mg Q6H PRN PO 06/26/17 19:15 07/26/17 19:14 Metoclopramide HCl (Reglan Inj) 10 mg Q6H PRN IV 06/26/17 19:15 07/26/17 19:14 Ondansetron HCl (Zofran Inj) 4 mg Q6H PRN IV 06/26/17 19:15 07/26/17 19:14 Promethazine HCl 12.5 mg/Sodium Chloride 50.5 ml @ 202 mls/hr Q6H PRN IV 06/26/17 19:15 07/26/17 19:14 Ketorolac Tromethamine (Toradol Inj) 30 mg Q6 IV. 06/27/17 00:00 06/28/17 00:01 06/27/17 17:43 30 MG Hydromorphone HCl (Dilaudid Inj) 1.5 mg Q3H PRN IV 06/26/17 19:15 07/10/17 19:14 Oxycodone/ Acetaminophen (Percocet 5-325mg Tab) 2 tab Q4H PRN PO 06/26/17 19:15 07/10/17 19:14 Hydromorphone HCl (Dilaudid Inj) 1 mg Q3H PRN IV 06/26/17 19:15 07/10/17 19:14 Oxycodone/ Acetaminophen (Percocet 5-325mg Tab) 1 tab Q4H PRN PO 06/26/17 19:15 07/10/17 19:14 Lactated Ringer's 1,000 ml @ 75 mls/hr [id number] IV 06/27/17 18:00 07/27/17 17:59 06/27/17 18:17 75 MLS/HR Polyethylene (Miralax Powder Packet) 17 gm BID PO 06/27/17 21:00 07/27/17 08:59 UNV Potassium Chloride (Klor-Con M10) 40 meq TODAY@1945 ONCE PO 06/27/17 19:45 06/27/17 19:46 Ceftriaxone Sodium 2000 mg/ Dextrose 70 ml @ 100 mls/hr Q24H IV 06/27/17 19:15 06/28/17 19:14 UNV Review of Systems Constitutional: + fever (earlier this week, now resolved), + chills (earlier this week, now resolved), + fatigue, No sweats Eyes: + worsening of vision, No eye pain, No redness, No discharge, No diplopia ENT: + nasal symptoms, No hearing loss, No unusual epistaxis, No sore throat, No dental problems, No trouble swallowing Respiratory: No cough, No sputum, No wheezing, No shortness of breath, No dyspnea on exertion Cardiovascular: No chest pain, No orthopnea Abdomen: No pain, No nausea, No vomiting, No diarrhea, No constipation, No GI bleeding Musculoskeletal: No joint pain, No muscle pain Genitourinary - Female: No dysuria Neurologic: + numbness/tingling (left foot), No memory loss, No paralysis Psychiatric: No depression symptoms Endocrine: + fatigue Hematologic / Lymphatic: No abnormal bleeding/bruising Integumentary: No rash Physical Exam Date Time Temp Pulse Resp B/P (MAP) Pulse Ox O2 Delivery O2 Flow Rate FiO2 06/27/17 16:00 Room Air 06/27/17 14:48 36.7 88 16 118/72 (87) 98 Room Air 06/27/17 11:48 36.6 91 16 133/79 (97) 97 Room Air 06/27/17 08:10 99 Room Air 06/27/17 07:57 36.9 78 16 128/77 (94) 99 Room Air 06/27/17 03:24 36.9 82 16 143/88 (106) 99 Room Air 06/26/17 23:30 Room Air 06/26/17 23:15 37.0 78 16 125/77 (93) 99 Room Air 06/26/17 22:15 37.0 79 16 126/80 (95) 98 Nasal Cannula 2.0 06/26/17 21:15 37.1 92 16 132/78 (96) 98 Nasal Cannula 2.0 06/26/17 20:45 36.8 100 16 170/91 (117) 99 Nasal Cannula 2.0 06/26/17 20:35 98 Nasal Cannula 2.0 06/26/17 20:01 148/96 06/26/17 20:00 111 16 100 06/26/17 20:00 113 16 06/26/17 19:56 138/92 06/26/17 19:55 106 20 98 06/26/17 19:55 107 20 06/26/17 19:51 143/94 06/26/17 19:50 115 18 99 06/26/17 19:50 117 18 06/26/17 19:49 36.8 06/26/17 19:46 174/107 06/26/17 19:45 115 19 95 06/26/17 19:45 113 19 06/26/17 19:41 141/84 06/26/17 19:40 113 16 06/26/17 19:40 113 16 97 06/26/17 19:36 156/92 General Appearance: WD/WN, no apparent distress, + obese Head: normocephalic, atraumatic Eyes: normal inspection, PERRL (pupils 4-5mm b/l ), EOMI, sclerae normal, + pertinent finding (visual levine full by direct confrontation ) ENT: pharynx normal Neck: supple, no adenopathy, thyroid normal, no JVD, no carotid bruits Respiratory/Chest: lungs clear, no respiratory distress, no accessory muscle use Cardiovascular: regular rate, rhythm, no gallop, no murmur, normal peripheral pulses Abdomen/GI: normal bowel sounds, non tender, soft, no organomegaly Back: + pertinent finding (large dressing in place with drain) Extremities/Musculoskelatal: no pedal edema Neurologic/Psych: customer care specialist II-XII nml as tested, no motor/sensory deficits, alert, normal mood/affect, oriented x 3, + abnormal reflexes (1-2+ b/l upper and lower extremities; unable to elicit ankle jerks b/l ) Skin: + pertinent finding (dressings intact on back) Lymphatic: no adenopathy (cervical ) Laboratory Results Last 24 Hours Test 06/27/17 17:51 06/27/17 19:08 06/27/17 19:10 Sodium Level 142 mmol/L Potassium Level 3.4 mmol/L Chloride Level 110 mmol/L Carbon Dioxide Level 26 mmol/L Anion Gap 7.0 mmol/L Blood Urea Nitrogen 14 mg/dl Creatinine 0.97 mg/dl Est Creatinine Clear Calc Drug Dose 83.4 ml/min Estimated GFR () 80.6 Estimated GFR (Non- 69.6 BUN/Creatinine Ratio 14.7 Random Glucose 97 mg/dl Calcium Level 8.6 mg/dl Bedside Glucose 121 mg/dl Assessment & Plan 46yo female with lumbar back surgery x 2 last month at [facility] who presented 2+ days ago with spinal headache and SIRS. She is now POD #1 from Incision and Drainage of the Lumbar Spine; Repair of Dural Laceration; Hardware Removal L5-S1; and Revision of Lumbar Fusion. She is growing group B strep from "deep drainage" of the back according to the microbiology report. Blood cultures are negative. Today she developed blurry vision while resting comfortably in the bed. 1. blurred vision - already improving. Her external eye exam and pupillary exam (with the exception of dilated pupils) were normal. Visual levine and extraocular muscle testing were both normal. I suspect that the scopolamine patch did indeed cause the blurred vision given the anticholinergic side effects. After speaking with the pharmacy it appears that it could take well into tomorrow for the effects to fully wear off. I don't see evidence of any eye infection, uveitis, trauma/abrasion, or stroke. Serial exams for now. Of note - fingerstick blood sugar was checked and was normal. 2. group B strep infection from lumbar spine - received IV vanco after admission. Change to rocephin 2 grams IV daily. Consider ID consultation. Blood cx's negative. May need prolonged course of antibiotics. 3. await test. 4. constipation - increase miralax to BID. Consider dulcolax tab in AM. 5. hypothyroidism - continue synthroid. 6. hypokalemia - replace; repeat BMP am. Check mag level. 7. mild acute blood loss anemia - recheck H/H in am for stability. Consider Fe supplement once constipation has improved. 8. DVT proph - SCDs. Thank you for this consult. Will follow along with you.
[2017-06-27] MEDS: LORAZEPAM INJ 1 MG in SYRINGE 0.5 ML IV PRN (20:36)
[2017-06-27] MEDS: POLYETHYLENE (MIRALAX) 17 GM PACK PO SCH (21:00)
[2017-06-27 22:45] VITALS: BP 144/72; PULSE 87; TEMP 37; O2SAT 97
[2017-06-28] MEDS: ACETAMINOPHEN IV 1,000 MG in EMPTY BAG 0 ML IV SCH ×4 (03:51→22:09)
[2017-06-28 05:50] LABS: BASO % 0.6 %; BASO ABS # 0.04 K/uL (0-0.2); EOS % 2.8 %; EOS ABS # 0.19 K/uL (0-0.5); HEMATOCRIT 26.1 % (37-47); HEMOGLOBIN 8.3 g/dL (12.0-16.0); IG# 0.01 K/uL (0.00-0.02); LYMPH % 26.2 %; MEAN CELL VOLUME 89.7 fL (80-100); MEAN CORPUSCULAR HEMOGLOBIN 28.5 pg (25-34); MEAN CORPUSCULAR HGB CONC 31.8 g/dl (32-36); MEAN PLATELET VOLUME 8.6 fL (7.4-10.4); MONO % 11.8 %; MONO ABS # 0.81 K/uL (0.11-0.59); NEUT % 58.5 %; NEUT ABS # 4.03 K/uL (1.4-6.5); PLATELET COUNT 505 K/uL (130-400); RED CELL DISTRIBUTION WIDTH CV 14.8 % (11.5-14.5); RED CELL DISTRIBUTION WIDTH SD 48.4 fL (36.4-46.3); WHITE BLOOD COUNT 6.88 K/uL (4.8-10.8)
[2017-06-28] MEDS: LEVOTHYROXINE 75 MCG TAB PO SCH (06:02)
[2017-06-28 06:29] LABS: CALCIUM 8.3 mg/dl (8.5-10.1); CREATININE 0.78 mg/dl (0.60-1.20)
[2017-06-28 07:15] VITALS: O2SAT 97
[2017-06-28] MEDS: LACTATED RINGER'S 1000ML 1,000 ML IV SCH (07:35)
[2017-06-28 07:41] VITALS: BP 146/85; PULSE 85; TEMP 36.7; O2SAT 97
--- NOTE | 2017-06-28 07:44 | Progress Note ---
Progress Note Date of Service Jun 28, 2017. Progress Note ID Consult dictated #[id number] A/P: 1. post op infection - GBS -Continue abx, follow culture -will need picc and prolonged course of abx -will follow, thank you
[2017-06-28] MEDS: CHECK SCOPOLAMINE PATCH PLACEMENT SCH ×2 (08:00→15:27)
--- NOTE | 2017-06-28 08:12 | INFECT. DISEASE CONSULTATION ---
DATE OF CONSULTATION: 06/28/2017 HISTORY OF PRESENT ILLNESS: This is a 46-year-old female who was admitted from home after she had worsening back pain and 1 day of fevers and chills prior to admission and a spontaneous wound dehiscence of a lumbar incision. She did undergo back surgery 1 month prior and had been doing well. Per the H&P, she had regular followup with orthopedic surgery and was recovering well. On Thursday, she had subjective fever and chills at home. On Thursday, she noticed some erythema around her incision and by Thursday evening, she had spontaneous drainage of cloudy fluid. She did contact her surgeon and she was sent to the Emergency Room for further evaluation. In the ER, she did have an MRI done, which showed a 13.5 x 7 x 4 cm collection from L3-S1 and 8 x1 x 1.5 cm collection as well. There was compression of her canal. She also was found to have an elevated white blood cell count of 15,000 and elevated sed rate of 57 and an elevated CRP of 7.1. She was afebrile since admission to the hospital, however. She was taken to the operating room on the and underwent I&D and a revision of her surgery. Antibiotic beads were also placed. Cultures were obtained intraoperatively and are growing group B strep. Sensitivities are pending. Blood cultures were obtained in the ER and are negative to date. She has been placed on Rocephin and she is tolerating this well. She did have some headache, but that has resolved. She denies any fevers or chills. She states her back pain is well controlled. Her drain remains in place. She denies any cough, chest pain, shortness of breath, nausea, vomiting, diarrhea or abdominal pain. She has not been out of bed and she is anxious to do so. Her remaining review of systems reviewed and are unremarkable. PAST MEDICAL HISTORY: Significant for obesity, high cholesterol and hypothyroidism. PAST SURGICAL HISTORY: Significant for knee surgery, rotator cuff repair, mammoplasty and spinal surgery. SOCIAL HISTORY: Negative for tobacco use, alcohol use or drug use. FAMILY HISTORY: Noncontributory. ALLERGIES: She has no known drug allergies. CURRENT MEDICATIONS: Include MiraLax, Rocephin, Evolex, Benadryl, magnesium, Ativan, Reglan, Dilaudid, Percocet, Synthroid, Colace, and Tylenol. PHYSICAL EXAMINATION: VITAL SIGNS: She is afebrile, pulse 87, respiratory rate 16, blood pressure 144/72, and oxygen saturation is 97% on room air. GENERAL: She is awake, alert and oriented x3. She is in no acute distress. HEENT: Mucous membranes are moist. Extraocular muscles are intact. HEART: Regular. LUNGS: Clear bilaterally. ABDOMEN: Soft and nondistended. There is no lower extremity edema. SKIN: Without rash. There is no nuchal rigidity. Surgical dressing is clean, dry and intact. Drain is in place with serosanguineous fluid. LABORATORY STUDIES: CBC today reveals a white blood cell count of 6.8, hemoglobin 8.3, and platelets are 505. Her sed rate was elevated at 57. Chemistry panel reveals a sodium of 143, potassium 4.0, chloride 111, bicarbonate 27, BUN 12, creatinine 0.7, and glucose is 92. CRP is 7.1. Urine test is pending. Blood cultures are negative to date. OR cultures growing group B strep. Sensitivities are pending. MRI is as above. ASSESSMENT AND PLAN: Postoperative infection. She will remain on Rocephin at this time. Pending the results of her final OR culture, she will likely need a minimum of 6 weeks of intravenous antibiotics. We will await final sensitivity. If her blood cultures remain negative, a PICC line can be placed. We will follow along with you. Thank you for this consultation.
[2017-06-28] MEDS: POLYETHYLENE (MIRALAX) 17 GM PACK PO SCH ×2 (08:58→20:44)
[2017-06-28] MEDS: DOCUSATE SODIUM 100 MG CAP PO SCH ×2 (09:17→20:44)
[2017-06-28] MEDS ORDERED: NURSING VERBAL MED ORDER ONE (12:00)
[2017-06-28] MEDS: TRAMADOL HCL 50 MG TAB PO PRN ×2 (12:11→17:58)
--- NOTE | 2017-06-28 13:00 | Progress Note ---
Subjective Date of Service: Jun 28, 2017. Subjective Pt evaluation today including: conversation w/ patient, conversation w/ family (mother), physical exam, chart review, lab review, review of inpatient medication list Pain: back PO Intake: improved Voiding: no voiding problems blurry vision resolved no new neuro complaints; has chronic left foot numbness from s1 radiculopathy no fevers or chills had 2 bowel movements today no other complaints Review of Systems Constitutional: No fever, No chills Respiratory: No shortness of breath Cardiac: No chest pain Abdomen: No pain Objective Vital Signs Date Time Temp Pulse Resp B/P (MAP) Pulse Ox O2 Delivery O2 Flow Rate FiO2 06/28/17 07:41 36.7 85 18 146/85 (105) 97 Room Air 06/28/17 07:15 97 Room Air 06/27/17 23:45 Room Air 06/27/17 22:45 37.0 87 16 144/72 (96) 97 Room Air 06/27/17 16:00 Room Air 06/27/17 14:48 36.7 88 16 118/72 (87) 98 Room Air Physical Exam General Appearance: no apparent distress Eyes: PERRL ENT: pharynx normal Neck: no JVD Respiratory/Chest: lungs clear, no respiratory distress, no accessory muscle use Cardiovascular: regular rate, rhythm, no gallop, + systolic murmur (1/6 K[place]ERON LLSB) Abdomen: normal bowel sounds, non tender, soft, no organomegaly Extremities: no pedal edema Neurologic/Psychiatric: no motor/sensory deficits (strength 5/5 x both legs), alert, oriented x 3 Skin: + pertinent finding (dressings in place over back - intact) Laboratory Results Last 24 Hours Test 06/27/17 17:51 06/27/17 19:08 06/27/17 19:10 06/28/17 05:32 Sodium Level 142 mmol/L 143 mmol/L Potassium Level 3.4 mmol/L 4.0 mmol/L Chloride Level 110 mmol/L 111 mmol/L Carbon Dioxide Level 26 mmol/L 26 mmol/L Anion Gap 7.0 mmol/L 6.0 mmol/L Blood Urea Nitrogen 14 mg/dl 12 mg/dl Creatinine 0.97 mg/dl 0.78 mg/dl Est Creatinine Clear Calc Drug Dose 83.4 ml/min 103.7 ml/min Estimated GFR () 80.6 104.9 Estimated GFR (Non- 69.6 90.5 BUN/Creatinine Ratio 14.7 15.7 Random Glucose 97 mg/dl 92 mg/dl Calcium Level 8.6 mg/dl 8.3 mg/dl Bedside Glucose 121 mg/dl Magnesium Level 2.2 mg/dl White Blood Count 6.88 K/uL Red Blood Count 2.91 M/uL Hemoglobin 8.3 g/dL Hematocrit 26.1 % Mean Corpuscular Volume 89.7 fL Mean Corpuscular Hemoglobin 28.5 pg Mean Corpuscular Hemoglobin Concent 31.8 g/dl Platelet Count 505 K/uL Mean Platelet Volume 8.6 fL Neutrophils (%) (Auto) 58.5 % Lymphocytes (%) (Auto) 26.2 % Monocytes (%) (Auto) 11.8 % Eosinophils (%) (Auto) 2.8 % Basophils (%) (Auto) 0.6 % Neutrophils # (Auto) 4.03 K/uL Lymphocytes # (Auto) 1.80 K/uL Monocytes # (Auto) 0.81 K/uL Eosinophils # (Auto) 0.19 K/uL Basophils # (Auto) 0.04 K/uL RDW Standard Deviation 48.4 fL RDW Coefficient of Variation 14.8 % Immature Granulocyte % (Auto) 0.1 % Immature Granulocyte # (Auto) 0.01 K/uL Red Blood Cell Morphology Unremarkable C-Reactive Protein 7.10 mg/dl Assessment and Plan 46yo female with lumbar back surgery x 2 last month at [facility] who presented 3+ days ago with spinal headache and SIRS. She is now POD #2 from Incision and Drainage of the Lumbar Spine; Repair of Dural Laceration; Hardware Removal L5-S1; and Revision of Lumbar Fusion. 1. blurred vision - resolved. Likely was due to scopolamine patch which has been d/c. 2. group B strep infection from lumbar spine - ID consult appreciated. 6-week course of once daily rocephin advised. PICC line consent obtained; to have such today. SW consult tomorrow to assist with dispo planning. CRP today down to 7 - nice improvement. 3. constipation - resolved. Cont miralax for bowel regimen. 4. hypothyroidism - continue synthroid. 5. hypokalemia - resolved. 6. mild acute blood loss anemia - Hb 8.3 today; start ferrous sulfate 325mg BID. CBC in am for stability. 7. DVT proph - SCDs. will continue to follow she looks better today overall Continued [facility] stay due to: multiple IV medications needed Discharge planning: home with IV medication
[2017-06-28 15:22] VITALS: BP 145/90; PULSE 74; TEMP 36.8; O2SAT 97
[2017-06-28] MEDS: FERROUS SULFATE 325 MG TAB PO SCH (17:57)
[2017-06-28] MEDS: CEFTRIAXONE SOD INJ 2,000 MG in DEXTROSE 5% 50ML 50 ML IV SCH (20:44)
[2017-06-28] MEDS: LORAZEPAM INJ 1 MG in SYRINGE 0.5 ML IV PRN (21:03)
[2017-06-28 22:50] VITALS: BP 151/91; PULSE 86; TEMP 36.9; O2SAT 97
[2017-06-29] VITALS (9 sets, daily range): BP systolic 139–158; BP diastolic 80–95; PULSE 81–102; TEMP 36.7–36.9; O2SAT 96–98
[2017-06-29] MEDS: CHECK SCOPOLAMINE PATCH PLACEMENT SCH
[2017-06-29 05:52] LABS: HEMATOCRIT 27.1 % (37-47); HEMOGLOBIN 8.6 g/dL (12.0-16.0); MEAN CELL VOLUME 88.9 fL (80-100); MEAN CORPUSCULAR HEMOGLOBIN 28.2 pg (25-34); MEAN CORPUSCULAR HGB CONC 31.7 g/dl (32-36); MEAN PLATELET VOLUME 8.7 fL (7.4-10.4); PLATELET COUNT 580 K/uL (130-400); RED CELL DISTRIBUTION WIDTH CV 14.6 % (11.5-14.5); WHITE BLOOD COUNT 8.23 K/uL (4.8-10.8)
[2017-06-29] MEDS: LEVOTHYROXINE 75 MCG TAB PO SCH (06:07)
[2017-06-29] MEDS: ACETAMINOPHEN IV 1,000 MG in EMPTY BAG 0 ML IV SCH ×3 (06:09→21:30)
[2017-06-29] MEDS: TRAMADOL HCL 50 MG TAB PO PRN ×3 (06:14→17:53)
--- NOTE | 2017-06-29 07:03 | ORTHOPEDICS PROGRESS NOTE ---
DATE: 06/27/2017 SUBJECTIVE: Pain is improved, stable. I am pleased with her progress. She is alert, oriented, no confusion. No chest pain or shortness of breath. No extremity difficulties. OBJECTIVE: 36.9 temperature, 128/77 blood pressure, pulse is 82, respirations 16, pulse ox 99. Hemoglobin 9.4. Final culture is pending. ASSESSMENT: Status post lumbar spine, major revision surgery performed from 3:30 yesterday afternoon to 7:00 p.m. It was a revision construct with the pedicle screws, patching of the dura closing the dural leak. As of this morning, she is improved, stable. I am pleased thus far only 12 hours out from surgery. DISPOSITION: We will start getting her head of bed elevated slightly. We will give her food. We will keep in the [place] catheter. We have Dr. Cook seeing her for infectious diseases for duration of antibiotics, we currently have her on vancomycin. I anticipate her possibly bed to chair tomorrow, maybe up to physical therapy, but very gently. We cannot afford any relapses of her spinal condition. I anticipate her going home on Thursday or Thursday. Hopefully, the antibiotics will only have to be performed for about 7 days. Her pain seems controlled.
[2017-06-29] MEDS: POLYETHYLENE (MIRALAX) 17 GM PACK PO SCH ×2 (07:53→20:37)
[2017-06-29] MEDS: FERROUS SULFATE 325 MG TAB PO SCH ×2 (07:55→17:52)
[2017-06-29] MEDS: DOCUSATE SODIUM 100 MG CAP PO SCH ×2 (07:55→20:37)
--- NOTE | 2017-06-29 08:07 | Anesthesiology Progress Note ---
Anesthesia Post Op Note Date & Time Jun 29, 2017 at 08:07 Vital Signs Vital Signs Past 12 Hours Date Time Temp Pulse Resp B/P (MAP) Pulse Ox O2 Delivery O2 Flow Rate FiO2 06/29/17 07:36 36.8 84 18 146/95 (112) 97 Room Air 06/29/17 06:24 149/80 (103) 06/29/17 06:15 36.8 81 16 96 Room Air 06/29/17 00:00 144/88 (106) 06/29/17 00:00 Room Air 06/28/17 22:50 36.9 86 16 151/91 (111) 97 Room Air Notes Mental Status: alert / awake / arousable, participated in evaluation Pt Amnestic to Procedure: Yes Nausea / Vomiting: adequately controlled Pain: adequately controlled Airway Patency, RR, SpO2: stable & adequate BP & HR: stable & adequate Hydration State: stable & adequate Anesthetic Complications: no major complications apparent
--- NOTE | 2017-06-29 09:05 | ORTHOPEDICS PROGRESS NOTE ---
DATE: 06/29/2017 SUBJECTIVE: The patient was seen and evaluated this morning on rounds. She was up in the bathroom on a chair for support. She is alert, oriented, had some neck pain but no photophobia, blurred vision, tinnitus. Denies chest pain, shortness of breath. She is alert, oriented. OBJECTIVE: Vital signs stable, afebrile. White cell count 8, hemoglobin slightly up to 8.6. Wound and drain, maintain. ASSESSMENT: Status post very complicated revision spinal surgery, repair of the dura, wash out of wound, reinstrumentation of the spine and in the short run which is only 3 days, she is doing fairly well. DISPOSITION: Will progress her today, walk her a little bit in the hallway. I anticipate her drain being removed tomorrow. She may be a good candidate for rehab placement. I appreciate the medical management and infectious disease consultations.
--- NOTE | 2017-06-29 10:04 | Progress Note ---
Subjective Date of Service: Jun 29, 2017. Subjective Pt evaluation today including: conversation w/ patient, physical exam, chart review, lab review pt seen in followup, some escoto this am after ambulating in room. resting now and feeling better. no f/c. tolerating abx. remains on ctx. blood cultures negative , s/p picc line. OR culture with GBS. Min pain at incision site, drain remains in place. no n/v/d, all remaining ros reviewed and are negative. Objective Vital Signs Date Time Temp Pulse Resp B/P (MAP) Pulse Ox O2 Delivery O2 Flow Rate FiO2 06/29/17 08:31 97 Room Air 06/29/17 07:36 36.8 84 18 146/95 (112) 97 Room Air 06/29/17 07:20 Room Air 06/29/17 06:24 149/80 (103) 06/29/17 06:15 36.8 81 16 96 Room Air 06/29/17 00:00 144/88 (106) 06/29/17 00:00 Room Air 06/28/17 22:50 36.9 86 16 151/91 (111) 97 Room Air 06/28/17 15:30 Room Air 06/28/17 15:22 36.8 74 18 145/90 (108) 97 Room Air Physical Exam General Appearance: WD/WN, no apparent distress Eyes: normal inspection, EOMI Neck: supple Respiratory/Chest: lungs clear, normal breath sounds, no respiratory distress Cardiovascular: regular rate, rhythm, no edema, no murmur Abdomen: non tender Extremities: non-tender, no pedal edema Neurologic/Psychiatric: alert, oriented x 3 Skin: normal color, no rash Laboratory Results Item Value Date Time Gram Stain - Final Resulted 06/26/17 1540 Drainage-Deep Spinal Disc Blood Culture - Preliminary Resulted 06/25/17 1345 Blood NO GROWTH TO DATE. Blood Culture - Preliminary Resulted 06/25/17 1325 Blood NO GROWTH TO DATE. Last 24 Hours Test 06/28/17 15:45 06/29/17 05:44 Urine Test NEG White Blood Count 8.23 K/uL Red Blood Count 3.05 M/uL Hemoglobin 8.6 g/dL Hematocrit 27.1 % Mean Corpuscular Volume 88.9 fL Mean Corpuscular Hemoglobin 28.2 pg Mean Corpuscular Hemoglobin Concent 31.7 g/dl RDW Standard Deviation 48.0 fL RDW Coefficient of Variation 14.6 % Platelet Count 580 K/uL Mean Platelet Volume 8.7 fL Assessment and Plan (1) Post-operative infection Assessment & Plan: continue rocephin, will need 6 weeks. will need weekly cbc, cmp, esr while on therapy. can follow with ID post op. picc line in place. ok for d/c when otherwise stable. Continued [facility] stay due to: multiple IV medications needed Discharge planning: home with IV medication
[2017-06-29] MEDS ORDERED: HydrALAZINE HCL 20 MG/ML VIAL IV. ONE (12:00)
--- NOTE | 2017-06-29 12:12 | Hospitalist Progress Note ---
Hospitalist Progress Note Date of Service Jun 29, 2017. Subjective Pt evaluation today including: conversation w/ patient, physical exam, lab review, review of inpatient medication list Voiding: no voiding problems Patient resting in bed. Alert and oriented. No signs of acute distress. +nausea this AM- given IV Zofran with resolution. Ate very little this AM due to nausea. Tolerated dinner last night well. Had a headache this AM- resolved. Pain is well controlled at present. +BMs. Patient is planning to go home at discharge. Patient denies any fever, chills, sweats, lightheadedness, dizziness, vision changes, CP, palpitations, edema, SOB, wheezing, cough, abdominal pain, vomiting , diarrhea, urinary symptoms, melena, numbness/tingling, weakness, anxiety/ depression, active bleeding, or new skin discoloration/changes. Medications Current Inpatient Medications Medications (Trade) Dose Ordered Sig/Manan Route Start Time Stop Time Status Last Admin Dose Admin Acetaminophen 1000 mg/Empty Bag 100 ml @ 400 mls/hr Q8H IV 06/25/17 20:00 07/25/17 19:59 06/29/17 06:09 400 MLS/HR Levothyroxine Sodium (Synthroid Tab) 75 mcg DAILYBB PO 06/26/17 06:00 07/26/17 05:59 06/29/17 06:07 75 MCG Docusate Sodium (coLACE CAP) 100 mg BID PO 06/25/17 21:36 07/25/17 21:35 06/29/17 07:55 100 MG Diphenhydramine HCl (Benadryl Cap) 25 mg Q6H PRN PO 06/26/17 19:15 07/26/17 19:14 Magnesium Hydroxide (Milk Of Magnesia Susp) 30 ml DAILY PRN PO 06/26/17 19:15 07/26/17 19:14 Bisacodyl (Dulcolax Supp) 10 mg DAILY PRN KS 06/27/17 06:00 07/27/17 05:59 Bisacodyl (Dulcolax Tab) 5 mg DAILY PRN PO 06/27/17 06:00 07/27/17 05:59 Lorazepam 1 mg/ Syringe 1 ml @ 1 mls/min Q6H PRN IV 06/26/17 19:15 07/26/17 19:14 06/28/17 21:03 1 MLS/MIN Lorazepam (Ativan Tab) 1 mg Q6H PRN PO 06/26/17 19:15 07/26/17 19:14 Metoclopramide HCl (Reglan Inj) 10 mg Q6H PRN IV 06/26/17 19:15 07/26/17 19:14 Ondansetron HCl (Zofran Inj) 4 mg Q6H PRN IV 06/26/17 19:15 07/26/17 19:14 06/29/17 08:18 4 MG Promethazine HCl 12.5 mg/Sodium Chloride 50.5 ml @ 202 mls/hr Q6H PRN IV 06/26/17 19:15 07/26/17 19:14 Hydromorphone HCl (Dilaudid Inj) 1.5 mg Q3H PRN IV 06/26/17 19:15 07/10/17 19:14 Hydromorphone HCl (Dilaudid Inj) 1 mg Q3H PRN IV 06/26/17 19:15 07/10/17 19:14 06/27/17 22:06 1 MG Lactated Ringer's 1,000 ml @ 75 mls/hr [id number] IV 06/27/17 18:00 07/27/17 17:59 Future Hold 06/28/17 07:35 75 MLS/HR Polyethylene (Miralax Powder Packet) 17 gm BID PO 06/27/17 21:00 07/27/17 08:59 Tramadol HCl (Ultram Tab) `1-2 tabs for pain 1 tab ... Q4H PRN PO 06/28/17 12:15 07/28/17 12:14 06/29/17 10:19 100 MG Ferrous Sulfate (Feosol Tab) 325 mg BIDM PO 06/28/17 17:45 07/28/17 17:44 06/29/17 07:55 325 MG Heparin Sodium (Porcine) (Heparin 10 Unit/ ml 5 ml Flush) 5 ml PRN PRN FLUSH 06/28/17 14:45 07/28/17 14:44 06/29/17 08:18 5 ML Ceftriaxone Sodium 2000 mg/ Dextrose 70 ml @ 100 mls/hr Q24H IV 06/28/17 20:00 08/09/17 19:59 06/28/17 20:44 100 MLS/HR Hydralazine HCl (HydrALAZINE INJ) 10 mg TODAY@1200 ONCE IV. 06/29/17 12:00 06/29/17 12:01 Acetaminophen/ Hydrocodone Bitart ([place] 5/325 Tab) 1 tab Q6 PRN PO 06/29/17 12:00 07/13/17 11:59 Objective Vital Signs Date Time Temp Pulse Resp B/P (MAP) Pulse Ox O2 Delivery O2 Flow Rate FiO2 06/29/17 11:54 36.7 83 17 152/88 (109) 98 Room Air 06/29/17 08:31 97 Room Air 06/29/17 07:36 36.8 84 18 146/95 (112) 97 Room Air 06/29/17 07:20 Room Air 06/29/17 06:24 149/80 (103) 06/29/17 06:15 36.8 81 16 96 Room Air 06/29/17 00:00 144/88 (106) 06/29/17 00:00 Room Air 06/28/17 22:50 36.9 86 16 151/91 (111) 97 Room Air 06/28/17 15:30 Room Air 06/28/17 15:22 36.8 74 18 145/90 (108) 97 Room Air Physical Exam General Appearance: no apparent distress Eyes: normal inspection, PERRL ENT: hearing grossly normal Neck: supple Respiratory/Chest: lungs clear, no respiratory distress, no accessory muscle use Cardiovascular: regular rate, rhythm Abdomen: normal bowel sounds, non tender, soft Extremities: no pedal edema, no calf tenderness Neurologic/Psychiatric: alert, normal mood/affect, oriented x 3 Skin: normal color, warm/dry, no rash, + pertinent finding (Incision site C/D/I ; drain with seroanguineous drainage ) Laboratory Results Last 24 Hours Test 06/28/17 15:45 06/29/17 05:44 Urine Test NEG White Blood Count 8.23 K/uL Red Blood Count 3.05 M/uL Hemoglobin 8.6 g/dL Hematocrit 27.1 % Mean Corpuscular Volume 88.9 fL Mean Corpuscular Hemoglobin 28.2 pg Mean Corpuscular Hemoglobin Concent 31.7 g/dl RDW Standard Deviation 48.0 fL RDW Coefficient of Variation 14.6 % Platelet Count 580 K/uL Mean Platelet Volume 8.7 fL Assessment and Plan 46 y/o female with lumbar back surgery x 2 last month at [facility] who presented 3+ days ago with spinal headache and SIRS. She is now POD #2 from Incision and Drainage of the Lumbar Spine; Repair of Dural Laceration; Hardware Removal L5-S1; and Revision of Lumbar Fusion. 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 Bedoya: - Pain management, PT/OT, and DVT prophylaxis as per primary team - Infectious disease consulted- IV Rocephin x6 weeks and CBC, CMP, ESR weekly while on antibiotic therapy - Consent obtained and PICC line placed on 06/28 Blurred vision, likely secondary to Scopolamine patch- RESOLVED Constipation- RESOLVED: Continue MiraLAX BID Hypothyroidism: Continue Synthroid 75 mcg daily Hypokalemia- RESOLVED: Replaced, follow PRP and replace PRN Mild acute blood loss anemia- STABLE: - Ferrous sulfate 325mg BID - Follow H&H- STABLE DVT prophylaxis: As per surgical team Code Status: LEVEL I, FULL Dispo: Discharge as per primary team- medically stable for discharge, will sign- off - Scripts for IV Rocephin x6 weeks and weekly labs in chart
[2017-06-29] MEDS: HYDROCODONE/ACETAMOPHEN 5/325MG TAB PO PRN ×2 (14:11→21:39)
[2017-06-29] MEDS: LORAZEPAM 1 MG TAB PO PRN (17:53)
[2017-06-29] MEDS: CEFTRIAXONE SOD INJ 2,000 MG in DEXTROSE 5% 50ML 50 ML IV SCH (20:37)
[2017-06-30] MEDS: TRAMADOL HCL 50 MG TAB PO PRN ×3 (02:09→22:18)
[2017-06-30] MEDS: LEVOTHYROXINE 75 MCG TAB PO SCH (05:31)
[2017-06-30] MEDS: ACETAMINOPHEN IV 1,000 MG in EMPTY BAG 0 ML IV SCH ×3 (05:31→21:09)
[2017-06-30 07:43] VITALS: BP 146/82; PULSE 123; TEMP 36.6; O2SAT 97
[2017-06-30] MEDS: HYDROCODONE/ACETAMOPHEN 5/325MG TAB PO PRN ×2 (07:55→17:44)
--- NOTE | 2017-06-30 08:19 | ORTHOPEDICS PROGRESS NOTE ---
DATE: 06/30/2017 SUBJECTIVE: Alert and oriented. Pain controlled, up to the bathroom. She is alert, oriented, has some palpitations and her pulse is elevated this morning. Temperature 36.6, blood pressure 140/80. Pulse ox is 97. Wound clean and dry. Drain is discontinued. It is minimally functional. IMPRESSION: A 46-year-old female with a complex spinal surgery. Postop spinal fluid leak repaired, postop wound infection as well being treated. DISPOSITION: She is not stable at this point in time to go home. Her pulse is too elevated. Rest of her vital signs are stable. Her wound is clean. Neurologically intact. 1. I recommend another day of stabilization. 2. The hospitalist will be seeing her later on today. 3. We will continue with the PICC line. I do anticipate her going to home tomorrow, which will be Thursday, would be appropriate, but she needs to be very stable before being discharged.
[2017-06-30] MEDS: FERROUS SULFATE 325 MG TAB PO SCH ×2 (08:39→17:43)
[2017-06-30] MEDS: DOCUSATE SODIUM 100 MG CAP PO SCH ×2 (08:40→21:09)
[2017-06-30] MEDS: POLYETHYLENE (MIRALAX) 17 GM PACK PO SCH ×2 (08:41→21:00)
[2017-06-30 08:59] LABS: BASO % 0.2 %; BASO ABS # 0.02 K/uL (0-0.2); EOS % 3.1 %; EOS ABS # 0.26 K/uL (0-0.5); HEMATOCRIT 27.7 % (37-47); HEMOGLOBIN 9.1 g/dL (12.0-16.0); IG# 0.03 K/uL (0.00-0.02); LYMPH % 17.2 %; LYMPH ABS # 1.46 K/uL (1.2-3.4); MEAN CELL VOLUME 88.2 fL (80-100); MEAN CORPUSCULAR HGB CONC 32.9 g/dl (32-36); MEAN PLATELET VOLUME 8.4 fL (7.4-10.4); MONO % 5.4 %; MONO ABS # 0.46 K/uL (0.11-0.59); NEUT % 73.7 %; NEUT ABS # 6.26 K/uL (1.4-6.5); PLATELET COUNT 587 K/uL (130-400); RED CELL DISTRIBUTION WIDTH CV 14.6 % (11.5-14.5); RED CELL DISTRIBUTION WIDTH SD 47.5 fL (36.4-46.3); WHITE BLOOD COUNT 8.49 K/uL (4.8-10.8)
[2017-06-30] MEDS ORDERED: OPTIRAY 320 IV PRN (11:30)
--- NOTE | 2017-06-30 12:27 | DIAGNOSTIC IMAGING REPORT ---
CHEST CTA for PULMONARY ARTERIES CT DOSE: 760.60 mGy.cm HISTORY: Tachycardia. Short of breath. TECHNIQUE: Multiaxial CT images of the chest were performed following the intravenous administration of contrast to evaluate the pulmonary arteries. Maximal intensity projection images were also obtained. A dose lowering technique was utilized adhering to the principles of ALARA. COMPARISON STUDY: None. FINDINGS: Motion artifact results in suboptimal evaluation of the lingular, right upper lobe, left lower lobe segmental pulmonary arteries. However, no definite filling defects seen within the pulmonary arteries to suggest pulmonary embolus. Normal thoracic aorta with no evidence for dissection. The visualized liver and spleen are unremarkable. Minimal left pleural fluid. Low lung volumes. The heart is normal in size. No mediastinal or hilar lymphadenopathy. A right PICC terminates in the SVC. No fractures within the visualized osseous structures. No pneumothorax. 4 mm subpleural nodular density within the left lung apex on image 198 likely represents a small focus of scarring. No focal lung consolidations to suggest pneumonia. IMPRESSION: 1. No definite evidence for pulmonary embolus. 2. Low lung volumes. 3. Minimal left pleural fluid. Electronically signed by: Michael Talavera M.D. 06/30/2017 12:25 PM Dictated Date/Time: 06/30/2017 12:13 PM
[2017-06-30 14:57] VITALS: BP 149/95; PULSE 100; TEMP 36.9; O2SAT 97
[2017-06-30] MEDS: CEFTRIAXONE SOD INJ 2,000 MG in DEXTROSE 5% 50ML 50 ML IV SCH (19:54)
[2017-06-30] MEDS: LORAZEPAM 1 MG TAB PO PRN (22:17)
[2017-06-30 23:25] VITALS: BP 149/89; PULSE 98; TEMP 37; O2SAT 96
[2017-07-01] MEDS: HYDROCODONE/ACETAMOPHEN 5/325MG TAB PO PRN ×2 (03:18→09:42)
[2017-07-01] MEDS: ACETAMINOPHEN IV 1,000 MG in EMPTY BAG 0 ML IV SCH (05:36)
[2017-07-01] MEDS: LEVOTHYROXINE 75 MCG TAB PO SCH (05:36)
[2017-07-01 06:06] VITALS: BP 149/94; PULSE 85; TEMP 36.8; O2SAT 96
[2017-07-01] MEDS: TRAMADOL HCL 50 MG TAB PO PRN (06:27)
[2017-07-01] MEDS: DOCUSATE SODIUM 100 MG CAP PO SCH (07:22)
[2017-07-01] MEDS: FERROUS SULFATE 325 MG TAB PO SCH (07:22)
[2017-07-01] MEDS: POLYETHYLENE (MIRALAX) 17 GM PACK PO SCH (07:23)
--- NOTE | 2017-07-01 07:33 | Progress Note ---
Subjective Date of Service: Jun 30, 2017. Subjective Pt evaluation today including: conversation w/ patient, conversation w/ family , physical exam, lab review, review of studies, conversation w/ mergers and acquisitions consultant, review of inpatient medication list Pain: better controlled on Novi and Ultram PO Intake: improved modestly Voiding: no voiding problems patient seen and examined on 06/30 called because patient had tachycardia at rest in the morning, into the 130's no palpitations but she did feel short of breath with minimal activity when I examined her, her HR anahy to to the 110's just with getting dressed due to recent surgery and hospitalizations, tachycardia and dyspnea, we chose to get a CTA of the chest CT was negative for PE thus, tachycardia is likely just physiologic response to recent surgery Hb 9 so may be contributing slightly to tachycardia and dyspnea Review of Systems Constitutional: + weakness, + fatigue Respiratory: + dyspnea on exertion Abdomen: + problem reported (poor appetite) Musculoskeletal: + joint pain (low back) All Other Systems: Reviewed and Negative Medications Current Inpatient Medications Medications (Trade) Dose Ordered Sig/Manan Route Start Time Stop Time Status Last Admin Dose Admin Acetaminophen 1000 mg/Empty Bag 100 ml @ 400 mls/hr Q8H IV 06/25/17 20:00 07/25/17 19:59 06/29/17 06:09 400 MLS/HR Levothyroxine Sodium (Synthroid Tab) 75 mcg DAILYBB PO 06/26/17 06:00 07/26/17 05:59 07/01/17 05:36 75 MCG Docusate Sodium (coLACE CAP) 100 mg BID PO 06/25/17 21:36 07/25/17 21:35 07/01/17 07:22 100 MG Diphenhydramine HCl (Benadryl Cap) 25 mg Q6H PRN PO 06/26/17 19:15 07/26/17 19:14 Magnesium Hydroxide (Milk Of Magnesia Susp) 30 ml DAILY PRN PO 06/26/17 19:15 07/26/17 19:14 Bisacodyl (Dulcolax Supp) 10 mg DAILY PRN WA 06/27/17 06:00 07/27/17 05:59 Bisacodyl (Dulcolax Tab) 5 mg DAILY PRN PO 06/27/17 06:00 07/27/17 05:59 Lorazepam 1 mg/ Syringe 1 ml @ 1 mls/min Q6H PRN IV 06/26/17 19:15 07/26/17 19:14 06/28/17 21:03 1 MLS/MIN Lorazepam (Ativan Tab) 1 mg Q6H PRN PO 06/26/17 19:15 07/26/17 19:14 06/30/17 22:17 1 MG Metoclopramide HCl (Reglan Inj) 10 mg Q6H PRN IV 06/26/17 19:15 07/26/17 19:14 Ondansetron HCl (Zofran Inj) 4 mg Q6H PRN IV 06/26/17 19:15 07/26/17 19:14 06/29/17 08:18 4 MG Promethazine HCl 12.5 mg/Sodium Chloride 50.5 ml @ 202 mls/hr Q6H PRN IV 06/26/17 19:15 07/26/17 19:14 Hydromorphone HCl (Dilaudid Inj) 1.5 mg Q3H PRN IV 06/26/17 19:15 07/10/17 19:14 Hydromorphone HCl (Dilaudid Inj) 1 mg Q3H PRN IV 06/26/17 19:15 07/10/17 19:14 06/27/17 22:06 1 MG Lactated Ringer's 1,000 ml @ 75 mls/hr [id number] IV 06/27/17 18:00 07/27/17 17:59 Future Hold 06/28/17 07:35 75 MLS/HR Polyethylene (Miralax Powder Packet) 17 gm BID PO 06/27/17 21:00 07/27/17 08:59 07/01/17 07:23 17 GM Tramadol HCl (Ultram Tab) `1-2 tabs for pain 1 tab ... Q4H PRN PO 06/28/17 12:15 07/28/17 12:14 07/01/17 06:27 100 MG Ferrous Sulfate (Feosol Tab) 325 mg BIDM PO 06/28/17 17:45 07/28/17 17:44 07/01/17 07:22 325 MG Heparin Sodium (Porcine) (Heparin 10 Unit/ ml 5 ml Flush) 5 ml PRN PRN FLUSH 06/28/17 14:45 07/28/17 14:44 06/30/17 08:16 5 ML Ceftriaxone Sodium 2000 mg/ Dextrose 70 ml @ 100 mls/hr Q24H IV 06/28/17 20:00 08/09/17 19:59 06/30/17 19:54 100 MLS/HR Acetaminophen/ Hydrocodone Bitart (Novi 5/325 Tab) 1 tab Q6 PRN PO 06/29/17 12:00 07/13/17 11:59 07/01/17 03:18 1 TAB Ioversol (Optiray 320) 125 ml UD PRN IV 06/30/17 11:30 07/04/17 11:29 Objective Vital Signs Date Time Temp Pulse Resp B/P (MAP) Pulse Ox O2 Delivery O2 Flow Rate FiO2 07/01/17 06:06 36.8 85 16 149/94 (112) 96 Room Air 06/30/17 23:40 Room Air 06/30/17 23:25 37.0 98 16 149/89 (109) 96 Room Air 06/30/17 15:55 Room Air 06/30/17 14:57 36.9 100 18 149/95 (113) 97 Room Air 06/30/17 07:43 36.6 123 18 146/82 (103) 97 Room Air Physical Exam General Appearance: WD/WN, no apparent distress Neck: supple, no adenopathy, no JVD, trachea midline Respiratory/Chest: chest non-tender, lungs clear, normal breath sounds, no respiratory distress, no accessory muscle use Cardiovascular: no edema, no gallop, no JVD, no murmur, + tachycardia Abdomen: normal bowel sounds, non tender, soft, no organomegaly Extremities: no pedal edema, no calf tenderness, normal capillary refill, pelvis stable, + pertinent finding (low back end architect, decreased ROM, drain has been pulled) Neurologic/Psychiatric: back end architect II-XII nml as tested, alert, normal mood/affect, oriented x 3, + sensory deficit (left foot and leg numbness) Skin: normal color, warm/dry, no rash Lymphatic: no adenopathy Laboratory Results Last 24 Hours Test 06/30/17 08:47 White Blood Count 8.49 K/uL Red Blood Count 3.14 M/uL Hemoglobin 9.1 g/dL Hematocrit 27.7 % Mean Corpuscular Volume 88.2 fL Mean Corpuscular Hemoglobin 29.0 pg Mean Corpuscular Hemoglobin Concent 32.9 g/dl Platelet Count 587 K/uL Mean Platelet Volume 8.4 fL Neutrophils (%) (Auto) 73.7 % Lymphocytes (%) (Auto) 17.2 % Monocytes (%) (Auto) 5.4 % Eosinophils (%) (Auto) 3.1 % Basophils (%) (Auto) 0.2 % Neutrophils # (Auto) 6.26 K/uL Lymphocytes # (Auto) 1.46 K/uL Monocytes # (Auto) 0.46 K/uL Eosinophils # (Auto) 0.26 K/uL Basophils # (Auto) 0.02 K/uL RDW Standard Deviation 47.5 fL RDW Coefficient of Variation 14.6 % Immature Granulocyte % (Auto) 0.4 % Immature Granulocyte # (Auto) 0.03 K/uL Assessment and Plan 46 y/o female with lumbar back surgery x 2 last month at [facility] who presented 3+ days ago with spinal headache and SIRS. She is now POD #3 from Incision and Drainage of the Lumbar Spine; Repair of Dural Laceration; Hardware Removal L5-S1; and Revision of Lumbar Fusion. 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 Bedoya: - Pain management, PT/OT, and DVT prophylaxis as per primary team - Infectious disease consulted- IV Rocephin x6 weeks and CBC, CMP, ESR weekly while on antibiotic therapy - Consent obtained and PICC line placed on 06/28 - pain is controlled with alternating Novi and Ultram, would continue this on discharge Tachycardia, sinus - likely just a physiologic response to surgeries, fatigue, low volume, mild anemia and pain - CTA chest negative for PE - HR will improve with time as she recovers from surgery - okay for discharge on 07/01 Blurred vision, likely secondary to Scopolamine patch- RESOLVED Constipation- RESOLVED: Continue MiraLAX BID while on narcotics to keep bowels regular Hypothyroidism: Continue Synthroid 75 mcg daily Hypokalemia- RESOLVED: Replaced, follow PRP and replace PRN Mild acute blood loss anemia- STABLE: - Ferrous sulfate 325mg BID - Follow H&H- 9gm on 06/30 DVT prophylaxis: As per surgical team Code Status: LEVEL I, FULL Dispo: medically safe for discharge on 07/01 Continued [facility] stay due to: multiple IV medications needed Discharge planning: home with IV medication
[2017-07-01] MEDS ORDERED: ULT50X PO (07:40)
[2017-07-01] MEDS ORDERED: ATV1 PO (07:40)
[2017-07-01] MEDS ORDERED: HYDR-5688 PO (07:40)
--- NOTE | 2017-07-01 07:42 | Discharge Instructions ---
Discharge Instructions Date of Service Jul 01, 2017. Admission Reason for Admission: Dural Tear, Fever Due To Infection Discharge Discharge Diagnosis / Problem: as above Discharge Goals Goal(s): Improve function Activity Recommendations Activity Limitations: as noted below Lifting Limitations: no more than 5 pounds, until after follow-up appointment Exercise/Sports Limitations: until after follow-up appointment May Resume Sexual Activity: after follow-up appointment Shower/Bathe: keep incision dry Driving or Machine Use: home rest , recover. May shower . Current Hospital Diet Patient's current hospital diet: Regular Diet Discharge Diet Recommended Diet: Regular Diet Procedures Procedures Performed: Incision and Drainage Lumbar Spine; Repair of Dural Laceration, Hardware Removal L5-S1, Revision of Lumbar Fusion, Pedicle Screws Instrumentation L4-L5-S1 Bilaterally, Revision of Interbody L5-S1, Application of Stimulant Beads, Bone Morphogenic Protein Pending Studies Studies pending at discharge: no Medical Emergencies . Who to Call and When: Medical Emergencies: If at any time you feel your situation is an emergency, please call 911 immediately. . Non-Emergent Contact Non-Emergency issues call your: Surgeon Call Non-Emergent contact if: you have any medication questions . "Provider Documentation" section prepared by Gonzalez Bedoya. . VTE Core Measure Inpt VTE Proph given/why not?: Treatment not indicated
[2017-07-01 08:00] VITALS: BP 150/88; PULSE 103; TEMP 36.8; O2SAT 96
[2017-07-01 08:08] VITALS: O2SAT 96
[2017-07-01] MEDS: CEFTRIAXONE SOD INJ 2,000 MG in DEXTROSE 5% 50ML 50 ML IV SCH (09:42)
[2017-07-01 09:57] VITALS: BP 150/88; PULSE 103; TEMP 36.8; O2SAT 96
--- NOTE | 2017-07-07 11:44 | DISCHARGE SUMMARY ---
Ladi is a delightful patient of us. She was taken to surgery, very complicated situation. She got through the surgery satisfactorily. She was alert, oriented, asks intelligent questions. No chest pain, shortness of breath. DISPOSITION: She was discharged home on the in improved stable condition. Medication for support. Instructions, precautions provided at length, medications and followup appointment.
== END 2017-07-01 11:36 | disposition home health service (06) | DRG 460 ==
LOC: C.EDB 12:38 → C.3E 14:56 → ENRESERV 15:33
PROVIDERS: ADMIT Orthopaedic Surgery Orthopaedic Surgery of the Spine; ATTEND Orthopaedic Surgery Orthopaedic Surgery of the Spine
PROC: 0SG00J1 Fusion of Lumbar Vertebral Joint with Synthetic Substitute, Posterior Approach, Posterior Column, Open Approach (ICD-10-PCS; principal; 2017-06-26 07:00)
PROC: 3E02329 Introduction of Other Anti-infective into Muscle, Percutaneous Approach (ICD-10-PCS; principal; 2017-06-26 07:00)
PROC: 0QB10ZZ Excision of Sacrum, Open Approach (ICD-10-PCS; principal; 2017-06-26 07:00)
PROC: 0SG30J1 Fusion of Lumbosacral Joint with Synthetic Substitute, Posterior Approach, Posterior Column, Open Approach (ICD-10-PCS; principal; 2017-06-26 07:00)
PROC: 0J9700Z Drainage of Back Subcutaneous Tissue and Fascia with Drainage Device, Open Approach (ICD-10-PCS; principal; 2017-06-26 07:00)
PROC: 00UT0JZ Supplement Spinal Meninges with Synthetic Substitute, Open Approach (ICD-10-PCS; principal; 2017-06-26 07:00)
PROC: 0QP104Z Removal of Internal Fixation Device from Sacrum, Open Approach (ICD-10-PCS; principal; 2017-06-26 07:00)
DX: T84.216A Breakdown (mechanical) of internal fixation device of vertebrae, initial encounter (principal); T81.4XXA Infection following a procedure, initial encounter; T84.226A Displacement of internal fixation device of vertebrae, initial encounter; D62 Acute posthemorrhagic anemia; G97.0 Cerebrospinal fluid leak from spinal puncture; B95.1 Streptococcus, group B, as the cause of diseases classified elsewhere; G96.11 Dural tear; G97.1 Other reaction to spinal and lumbar puncture; T44.3X5A Adverse effect of other parasympatholytics [anticholinergics and antimuscarinics] and spasmolytics, initial encounter; E78.00 Pure hypercholesterolemia, unspecified; E03.9 Hypothyroidism, unspecified; E66.9 Obesity, unspecified; Z98.1 Arthrodesis status; B95.5 Unspecified streptococcus as the cause of diseases classified elsewhere; H53.8 Other visual disturbances; K59.00 Constipation, unspecified; E87.6 Hypokalemia; Y79.2 Prosthetic and other implants, materials and accessory orthopedic devices associated with adverse incidents; Y92.019 Unspecified place in single-family (private) house as the place of occurrence of the external cause; Z96.698 Presence of other orthopedic joint implants; Y92.230 Patient room in hospital as the place of occurrence of the external cause